=== PATIENT | male | born 1965 | race Caucasian/White ===

== ENCOUNTER → 2023-06-14 07:02 | Outpatient (CLI) | payer SELFPAY ==
[2023-06-14 07:37] LABS: Basophils # 0.1 K/mm3 (0-0.2); Basophils % 0.9 % (0.1-2.0); Eosinophils # 0.2 K/mm3 (0.0-0.4); Eosinophils % 2.3 % (0.1-12.0); Hemoglobin 14.8 g/dL (14.1-18.0); Lymphocytes # 1.8 K/mm3 (0.7-4.5); Lymphocytes % 25.3 % (10-50); Mean Corpuscular HGB Conc 32.2 g/dL (31.8-35.4); Mean Corpuscular Hemoglobin 27.7 pg (27.0-31.2); Mean Corpuscular Volume 86.1 fl (80-94); Mean Platelet Volume 8.6 fl (7.4-10.4); Monocytes # 0.5 K/mm3 (0.1-1.0); Monocytes % 7.2 % (1.7-9.3); Neutrophils # 4.6 K/mm3 (1.8-7.8); Neutrophils % 64.2 % (37.0-80.0); Platelet Count 252 K/mm3 (142-424); Red Blood Count 5.35 M/mm3 (4.60-6.20); Red Cell Distribution Width 13.4 % (11.5-17.5); White Blood Count 7.1 K/mm3 (4.8-10.8)
[2023-06-14 10:29] LABS: Chloride 105 mmol/L (98-107); Potassium 4.6 mmoL/L (3.5-5.1); Sodium 137 mmol/L (136-145)
[2023-06-14 10:31] LABS: Blood Urea Nitrogen 22 mg/dl (9-20); Estimated Glomerular Filt Rate 69 ml/min (>60); GFR (African American) 83 ML/MIN (>60)
[2023-06-14 10:32] LABS: Alanine Aminotransferase 28 U/L (12-78); Albumin Level 3.8 g/dl (3.5-5.0); Alkaline Phosphatase 79 U/L (38-126); Anion Gap 9.6 mEq/L (5-15); Aspartate Amino Transferase 29 U/L (17-59); Bilirubin,Direct 0.3 mg/dl (0.0-0.4); Bilirubin,Total 0.3 mg/dl (0.2-1.3); Bilirubin,Unconjugated 0.1 mg/dL (0.0-1.1); Carbon Dioxide 27 mmol/L (22.0-30.0); Cholesterol 168 mg/dl (140-200); Glucose 92 mg/dl (74-100); HDL Cholesterol 29 mg/dl (40-60); Total Protein,Serum 6.2 g/dl (6.3-8.2); Triglycerides 114 mg/dl (30-150); VLDL Cholesterol 23 mg/dL (0-40)
[2023-06-14 10:40] LABS: Chol/HDL Ratio 5.8 (1-3.5)
[2023-06-14 10:43] LABS: Direct LDL Cholesterol 101.91 mg/dL (100-129)
[2023-06-14 11:59] LABS: Triiodothryronine (T3) Uptake 35 % (23.5-40.5)
[2023-06-14 12:00] LABS: Free Thyroxine Index 2.4 ug/dL (5.93-13.13); T4 (Thyroxine) 6.8 ug/dl (5.53-11.0)
[2023-06-14 12:13] LABS: Thyroid Stimulating Hormone 2.47 uIU/mL (0.465-4.68)
== END ==
PROVIDERS: Visit Provider Internal Medicine
DX: R00.2 Palpitations (principal); R00.0 Tachycardia, unspecified; R53.83 Other fatigue; I10 Essential (primary) hypertension; I11.9 Hypertensive heart disease without heart failure; I63.9 Cerebral infarction, unspecified; E11.9 Type 2 diabetes mellitus without complications
CPT/HCPCS: 36415; 80048; 80061; 80076; 82533; 84436; 84443; 84479; 85025

== ENCOUNTER → 2023-06-16 06:25 | Outpatient (CLI) | payer SELFPAY ==
--- NOTE | 2023-06-16 06:29 | NM_ITS ---
APPROVED REPORT Exam: Nuclear Stress Test Indication: HTN, PALPITATIONS, FORMER SMOKER, ABN EKG Patient Location: Outpatient Stress Tech: Helga Nguyen PR Tech:JIMMY Henry RT (R)(N)(M) Ht: 6 ft 1 in Wt: 193 lbs HR: 64 bpm BP: 142/77 mmHg BSA: 2.12 m2 Rhythm: NSR TID: 1.15 BMI: 25.4 History: HTN, PALPITATIONS, FORMER SMOKER, ABN EKG Procedure: Patient exercised on Galo protocol 10:20 minutes and sec, resting heart rate 64 bpm, resting blood pressure 142/77 mmHg, with exercise maximum heart rate achived was 156 bpm which is 96 % of the maximum predicted heart rate and blood pressure was 195/82 mmHg. Test was stopped due to FATIGUE. Patient denied any complaint of chest pain. Patient has Average exercise capacity, achieved 12.8 METs of workload on treadmill, the blood pressure response to exercise was Normal. Cardiac Stress and Resting SPECT Images: Cardiac Stress and Resting SPECT images were obtained using technetium 99m Myoview 31.8 mCi stress and 10.50 mCi at rest. Resting and stress imaging in supine and prone positions demonstrate no evidence of fixed or reversible perfusion defects. Gated imaging demonstrates normal global and regional LV systolic function. LVEF is calculated at 57%. Conclusion: No evidence of fixed or reversible perfusion defects. Gated imaging demonstrates normal global and regional LV systolic function. LVEF is calculated at 57%. Electronically signed by : Beatriz Gonsalves MD 06/19/2023 23:23:20
--- NOTE | 2023-06-16 07:03 | CA_ITS ---
APPROVED REPORT EXAM: Comprehensive 2D, Doppler, and color-flow Echocardiogram [employer] Operations Farm Manager: Socorro Rodriguez CRT Ht: 6 ft 0 in Wt: 200lbs BSA: 2.13 BP: 140/76 mmHg Indications: Abnormal ECG, Palpitations, Fatigue, Hypertension/HDD 2D Dimensions LVOT 1.98 cm (M/F) 1.5-2.5 LA Volume 30.80 mL LA Volume Index 14.10 mL/m2 (M/F) 16-34 M-Mode Dimensions RVDd 2.96 cm (0.9-2.6) LA Diam 3.57 cm (1.9-4.0) LVDd 4.71 cm (3.5-5.7) Ao Diam 3.41 cm (2.0-3.7) LVDs 3.07 cm (3.5-5.7) IVSd 1.18 cm (0.6-1.1) PWd 0.93 cm (0.6-1.1) EF (Teich) 64.00% FS 34.80% EDV (Teich) 102.90 mL TAPSE 2.29 (<1.7) ESV (Teich) 37.00 mL LV Diastology E Decel Time 223.00 (160-240 msec) E/A Ratio 1.16 MED E' 9.80 (< 7 cm/sec) MED A' 13.20 cm/s E'/MED E' Ratio 8.77 (>14) LAT E' 12.80 (<10 cm/sec) LAT A' 8.40 cm/s E/LAT E' Ratio 6.71 (>14) Aortic Valve AO Peak GR. 5.50 mmHg Mitral Valve MV A Velocity 74.00 (40-130 cm/s) E/A Ratio 1.16 MV Decel. Time 223.00 (160-240 ms) Pulmonary Valve PV Peak Velocity 162.00 (50-150 cm/s) Tricuspid Valve TR P. Velocity 250.00 cm/s RAP Estimate 10.00 mmHg RVSP 35.00 mmHg Left Ventricle The left ventricle is normal size. The left ventricular systolic function is normal. The left ventricular ejection fraction is within the normal range. There is normal left ventricular wall thickness. There is normal LV segmental wall motion. The left ventricular diastolic function is normal. LVEF = 55% Right Ventricle The right ventricle is normal size. The right ventricular systolic function is normal. Atria The left atrium size is normal. The right atrium size is normal. There is no Doppler evidence of interatrial shunt. Aortic Valve The aortic valve opens well. There is no aortic valvular stenosis. No aortic regurgitation is present. Mitral Valve The mitral valve is normal in structure. No evidence of mitral valve stenosis. Trace mitral regurgitation. Tricuspid Valve The tricuspid valve leaflets are thin and pliable. Trace tricuspid regurgitation. RVSP is 25-30 mmHg. Pulmonic Valve The pulmonary valve is normal in structure. Mild pulmonic regurgitation. Great Vessels The aortic root is normal in size. The ascending aorta is normal in size. IVC is normal in size and collapses >50% with inspiration. Pericardium There is no pericardial effusion. Other Information Study Quality: Fair Conclusion Normal biventricular systolic function. No significant valvular stenosis or regurgitation. Electronically signed by : Beatriz Gonsalves MD 06/16/2023 11:05:20
--- NOTE | 2023-06-16 07:03 | CA_ITS ---
FINAL REPORT TECHNIQUE: Color Doppler, duplex Doppler and wade scale sonography of the bilateral neck arterial vasculature was performed. Velocities were measured in the carotid arteries. Stenosis evaluation based on the validated velocity criteria. CLINICAL HISTORY: numbness in face, ex-smoke, palpitations FINDINGS: The peak systolic velocity of the right common carotid artery is 76 cm/s. The peak systolic velocity of the right internal carotid artery is 100 cm/s and end diastolic velocity 37 cm/s. The ICA/CCA ratio is 2.0. A small amount of plaque is present. The right external carotid artery is patent. The right vertebral artery is patent with antegrade flow. The peak systolic velocity of the left common carotid artery is 82 cm/s. The peak systolic velocity of the left internal carotid artery is 129 cm/s and end diastolic velocity 44 cm/s. The ICA/CCA ratio is 2.3. A small amount of plaque is present. The left external carotid artery is patent.The left vertebral artery is patent with antegrade flow. IMPRESSION: Less than 50% bilateral carotid stenoses. Bilateral patent vertebral arteries with antegrade flow. If indicated, CTA or MRA could further evaluate. Reviewed, Interpreted and Dictated by Héctor Elmore III, MD Transcribed by Surekha Santana Authenticated and . [facility]
--- NOTE | 2023-06-16 09:22 | CA_ITS ---
APPROVED REPORT Exam: Exercise Treadmill Technologist: Helga Nguyen Ht: 6 ft 0 in Wt: 201 lbs BSA: 2.14 m2 HR: 63 bpm BP: 142/77 mmHg Rhythm: NSR Indications: Abnormal ekg, Palpitations, Face numbness Medical History Medications: Lisinopril,,,,, MeLOXICAM,,,,, Methocarbamol,,,,, Stress Test Details Test: Galo HR Resting HR: 64 bpm Max Heart Rate (APMHR): 162 bpm Max HR Achieved: 156 bpm Target HR (85% APMHR): 138 bpm % of APMHR: 96 Recovery HR: 81 bpm HR response to stress: Normal HR response to stress BP Resting BP: 142.0/77.0 mmHg Max BP: 195.0/82.0 mmHg Recovery BP: 126.0/68.0 mmHg BP response to stress: Normal blood pressure response to stress. ECG Resting ECG: Normal sinus rhythm Stress EC.[address] depression Arrhythmia: PACs, PVCs, ventricular couplet Recovery ECG: Return to baseline within 1 minute of recovery. Recovery Arrhythmia: PACs Clinical Reason for Termination: Dyspnea Exercise duration: 10:20 min Highest Stage Achieved: Exercise capacity: 12.8 METs Overall Exercise Capacity for Age: Average Stress ECG Conclusion The patient was able to exercise for a total of 10 minutes, 20 seconds. He achieved a total of 12.8 METS. He has average exercise capacity compared to age and sex matched peers. He has normal HR and BP response to exercise. Symptoms: No chest pain. Arrhythmias/Ectopy: One ventricular couplet. Occasional to frequent PAC's ST-T Changes: No significant ST changes suggestive of ischemia Conclusion: Average exercise capacity. Normal GXT. PACs, PVCs, ventricular couplets at peak stress. Myoview images reported separately. Test Summary REST . . . . . . . Sitting REST . . . . . . . Standing REST 03:35 0.0 0.0 64 . 142/ 77 . . Stage 1 01:00 10.0 1.7 92 . . . . Stage 1 02:00 10.0 1.7 98 . . . . Stage 1 03:00 10.0 1.7 99 . 172/ 68 . . Stage 2 01:00 12.0 2.5 106 . . . . Stage 2 02:00 12.0 2.5 109 . . . . Stage 2 03:00 12.0 2.5 112 . 184/ 70 . . Stage 3 01:00 14.0 3.4 121 . . . . Stage 3 02:00 14.0 3.4 126 . . . . Stage 3 03:00 14.0 3.4 130 . 192/ 70 . . Stage 4 . . . . . . . Myoview Injected Stage 4 01:00 16.0 4.2 146 . . . . Stage 4 01:20 16.0 4.2 154 . . . Stop exercise at 10:20 RECOVERY 01:00 0.0 0.0 124 . . . . RECOVERY 02:00 0.0 0.0 96 . 195/ 82 . . RECOVERY 03:00 0.0 0.0 84 . 195/ 82 . . RECOVERY 04:00 0.0 0.0 78 . 166/ 67 . . RECOVERY 05:00 0.0 0.0 81 . 166/ 67 . . RECOVERY 06:00 0.0 0.0 80 . 126/ 68 . . RECOVERY 06:01 0.0 0.0 80 . 126/ 68 . . Electronically signed by : Beatriz Gonsalves MD 06/16/2023 09:51:42
== END ==
PROVIDERS: Visit Provider Internal Medicine
DX: R42 Dizziness and giddiness (principal); R00.2 Palpitations; R00.0 Tachycardia, unspecified; R94.31 Abnormal electrocardiogram [ECG] [EKG]; I10 Essential (primary) hypertension; R53.83 Other fatigue; R20.0 Anesthesia of skin
CPT/HCPCS: 78452; 93017; 93306; 93880; A9502

== ENCOUNTER 2024-02-29 14:27 | Outpatient (CLI) | payer BC, SELFPAY ==
[2024-02-29 15:21] LABS: Basophils # 0.1 K/mm3 (0-0.2); Basophils % 1.2 % (0.1-2.0); Eosinophils # 0.1 K/mm3 (0.0-0.4); Eosinophils % 1.9 % (0.1-12.0); Hematocrit 41.7 % (42.0-52.0); Hemoglobin 13.7 g/dL (14.1-18.0); Lymphocytes # 1.5 K/mm3 (0.7-4.5); Lymphocytes % 21.9 % (10-50); Mean Corpuscular HGB Conc 32.9 g/dL (31.8-35.4); Mean Corpuscular Hemoglobin 29.1 pg (27.0-31.2); Mean Corpuscular Volume 88.5 fl (80-94); Mean Platelet Volume 9.5 fl (7.4-10.4); Monocytes # 0.5 K/mm3 (0.1-1.0); Monocytes % 7.5 % (1.7-9.3); Neutrophils # 4.5 K/mm3 (1.8-7.8); Neutrophils % 67.6 % (37.0-80.0); Platelet Count 203 K/mm3 (142-424); Red Blood Count 4.71 M/mm3 (4.60-6.20); Red Cell Distribution Width 14.2 % (11.5-17.5); White Blood Count 6.7 K/mm3 (4.8-10.8)
[2024-02-29 15:42] LABS: Alanine Aminotransferase 25 U/L (12-78); Albumin Level 4.2 g/dl (3.5-5.0); Alkaline Phosphatase 65 U/L (38-126); Anion Gap 13.4 mEq/L (5-15); Aspartate Amino Transferase 33 U/L (17-59); Bilirubin,Indirect 0.7 mg/dL (0.0-0.9); Bilirubin,Total 0.7 mg/dl (0.2-1.3); Bilirubin,Unconjugated 0.7 mg/dL (0.0-1.1); Blood Urea Nitrogen 24 mg/dl (9-20); Calcium 9.7 mg/dl (8.4-10.2); Carbon Dioxide 27 mmol/L (22.0-30.0); Chloride 105 mmol/L (98-107); Chol/HDL Ratio 5.8 (1-3.5); Cholesterol 210 mg/dl (140-200); Estimated Glomerular Filt Rate 57 ml/min (>60); GFR (African American) 68 ML/MIN (>60); Glucose 93 mg/dl (74-100); HDL Cholesterol 36 mg/dl (40-60); Magnesium 2.2 mg/dl (1.6-2.3); Potassium 4.4 mmoL/L (3.5-5.1); Sodium 141 mmol/L (136-145); Total Protein,Serum 6.6 g/dl (6.3-8.2); Triglycerides 107 mg/dl (30-150); VLDL Cholesterol 21 mg/dL (0-40)
[2024-02-29 15:53] LABS: Direct LDL Cholesterol 125.86 mg/dL (100-129)
[2024-02-29 16:00] LABS: Free T4 (Free Thyroxine) 0.88 ng/dl (0.78-2.19)
[2024-02-29 16:12] LABS: Thyroid Stimulating Hormone 1.43 uIU/mL (0.465-4.68)
== END 2024-02-29 23:59 | disposition home or self-care (01) ==
LOC: LAB 14:28
PROVIDERS: Visit Provider Internal Medicine
DX: R00.2 Palpitations (principal); R53.83 Other fatigue; I10 Essential (primary) hypertension; R94.31 Abnormal electrocardiogram [ECG] [EKG]
CPT/HCPCS: 36415; 80048; 80061; 80076; 83735; 84439; 84443; 85025

== ENCOUNTER 2024-03-31 10:21 | Outpatient (CLI) | payer BC, SELFPAY ==
[2024-03-31 10:35] LABS: Basophils # 0.1 K/mm3 (0-0.2); Basophils % 1.5 % (0.1-2.0); Eosinophils # 0.1 K/mm3 (0.0-0.4); Eosinophils % 2.3 % (0.1-12.0); Hematocrit 42.3 % (42.0-52.0); Hemoglobin 14.2 g/dL (14.1-18.0); Lymphocytes # 1.2 K/mm3 (0.7-4.5); Mean Corpuscular HGB Conc 33.6 g/dL (31.8-35.4); Mean Corpuscular Hemoglobin 29.9 pg (27.0-31.2); Mean Corpuscular Volume 89.1 fl (80-94); Mean Platelet Volume 9.2 fl (7.4-10.4); Monocytes # 0.4 K/mm3 (0.1-1.0); Monocytes % 7.6 % (1.7-9.3); Neutrophils # 3.9 K/mm3 (1.8-7.8); Neutrophils % 67.6 % (37.0-80.0); Platelet Count 207 K/mm3 (142-424); Red Blood Count 4.74 M/mm3 (4.60-6.20); Red Cell Distribution Width 14.1 % (11.5-17.5); White Blood Count 5.8 K/mm3 (4.8-10.8)
[2024-03-31 11:00] LABS: Chloride 107 mmol/L (98-107); Sodium 140 mmol/L (136-145)
[2024-03-31 11:01] LABS: Potassium 4.4 mmoL/L (3.5-5.1)
[2024-03-31 11:03] LABS: Blood Urea Nitrogen 21 mg/dl (9-20); Estimated Glomerular Filt Rate 69 ml/min (>60); GFR (African American) 83 ML/MIN (>60)
[2024-03-31 11:04] LABS: Anion Gap 8.4 mEq/L (5-15); Calcium 9.6 mg/dl (8.4-10.2); Carbon Dioxide 29 mmol/L (22.0-30.0); Glucose 103 mg/dl (74-100)
== END 2024-03-31 23:59 | disposition home or self-care (01) ==
LOC: LAB 10:22
PROVIDERS: Visit Provider Nurse Practitioner Family
DX: D64.9 Anemia, unspecified (principal); R42 Dizziness and giddiness; R20.0 Anesthesia of skin; R94.31 Abnormal electrocardiogram [ECG] [EKG]; I10 Essential (primary) hypertension; R00.0 Tachycardia, unspecified; R53.83 Other fatigue; R00.2 Palpitations
CPT/HCPCS: 36415; 80048; 85025

== ENCOUNTER 2024-05-30 20:07 | Emergency (ER) | payer SELFPAY ==
[2024-05-30 20:09] VITALS: BMI 33.9
[2024-05-30 20:15] VITALS: BP 150/74; PULSE 75; RESP 13; TEMP 36.6; O2SAT 97
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
[2024-05-30] MEDS: LACTATED RINGERS 1000ML 1,000 ML 999 ML IV (20:22)
[2024-05-30] MEDS: ACETAMINOPHEN 1,000MG/100ML VIAL 1000 MG IV (20:22)
[2024-05-30] MEDS: LIDOCAINE 5% TRANSDERMAL PATCH 1 EACH TP (20:24)
[2024-05-30] MEDS: TET/DIPHTH/PERT-ADULT 0.5ML SYRINGE 0.5 ML IM (20:25)
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
[2024-05-30] MEDS: IOPAMIDOL-370 (76%);100ML BOTTLE 160 ML IV (20:48)
[2024-05-30] MEDS: 0.9 % SODIUM CHLORIDE 50 ML VIAL IV (20:48)
[2024-05-30] MEDS: SODIUM CHLORIDE 0.9% 10ML SYR (RAD ONLY) 10 ML IV (20:48)
--- NOTE | 2024-05-30 20:49 | PC.NURSE ---
Pt's and children are bedside. Dr. Nieves is in the room with family at this time.
[2024-05-30] MEDS: METHOCARBAMOL 500MG TABLET 500 MG PO (20:54)
[2024-05-30 20:57] VITALS: BP 138/71; PULSE 79; RESP 15; O2SAT 98
[2024-05-30 21:00] VITALS: BP 134/77; PULSE 74; RESP 15; O2SAT 98
--- NOTE | 2024-05-30 21:07 | PC.NURSE ---
at bedside at this time.
--- NOTE | 2024-05-30 21:39 | PC.NURSE ---
at bedside repairing laceration at this time. Two visitors at bedside at this time.
[2024-05-30] MEDS: BACITRACIN ZINC OINT 30GM TUBE TP (21:48)
--- NOTE | 2024-05-30 21:52 | PC.NURSE ---
Charge nurse is updating family in lobby of POC at this time.
[2024-05-30 22:00] VITALS: PULSE 79; RESP 12; O2SAT 97
[2024-05-30 22:15] VITALS: BP 134/79; PULSE 73; RESP 16; O2SAT 95
[2024-05-30 22:18] LABS: Basophils % 0.2 % (0.1-2.0); Eosinophils # 0.1 K/mm3 (0.0-0.4); Eosinophils % 0.7 % (0.1-12.0); Hematocrit 44.7 % (42.0-52.0); Hemoglobin 14.1 g/dL (14.1-18.0); Lymphocytes # 1.1 K/mm3 (0.7-4.5); Lymphocytes % 6.2 % (10-50); Mean Corpuscular HGB Conc 31.4 g/dL (31.8-35.4); Mean Corpuscular Hemoglobin 29.2 pg (27.0-31.2); Mean Corpuscular Volume 92.7 fl (80-94); Mean Platelet Volume 8.1 fl (7.4-10.4); Monocytes # 0.6 K/mm3 (0.1-1.0); Monocytes % 3.7 % (1.7-9.3); Neutrophils # 15.4 K/mm3 (1.8-7.8); Neutrophils % 89.1 % (37.0-80.0); Platelet Count 206 K/mm3 (142-424); Red Blood Count 4.82 M/mm3 (4.60-6.20); White Blood Count 17.2 K/mm3 (4.8-10.8)
[2024-05-30 22:21] LABS: MANUAL DIFFERENTIAL MANUAL DIFFERENTIAL (MANUAL DIFF)
[2024-05-30] MEDS: LIDOCAINE 1% W/EPI 1:100,000 20ML VIAL 20 ML IJ (22:21)
[2024-05-30 22:22] LABS: Lactate Venous 1.5 mmol/L (0.4-2.0); VBG Base Excess -2.1 mmol/L (-2.4-2.3); VBG HCO3 23.8 mmol/L (23-30); VBG Oxygen Saturation 83.2 % (50-70); VBG PCO2 46.3 mmol/L (35-51); VBG PH 7.33 mmol/L (7.31-7.41); VBG PO2 49.5 mmol/L (28-40); VBG Total CO2 25.2 mmol/L (23-27)
[2024-05-30 22:30] LABS: Alanine Aminotransferase 27 U/L (12-78); Albumin Level 3.7 g/dl (3.5-5.0); Albumin/Globulin Ratio 1.4 (1.1-1.8); Alkaline Phosphatase 83 U/L (38-126); Anion Gap 6.6 mEq/L (5-15); Aspartate Amino Transferase 44 U/L (17-59); Bilirubin,Total 0.5 mg/dl (0.2-1.3); Blood Urea Nitrogen 29 mg/dl (9-20); Calcium 9.1 mg/dl (8.4-10.2); Carbon Dioxide 27 mmol/L (22.0-30.0); Chloride 106 mmol/L (98-107); Creatinine Clearance Estimated 91 mL/min (50-200); Estimated Glomerular Filt Rate 52 ml/min (>60); Ethyl Alcohol < 10 mg/dl (0-10); GFR (African American) 63 ML/MIN (>60); Globulin 2.6 g/dL (1.3-3.2); Glucose 113 mg/dl (74-100); Lipase 111 U/L (23-300); Potassium 4.6 mmoL/L (3.5-5.1); Sodium 135 mmol/L (136-145); Total Protein,Serum 6.3 g/dl (6.3-8.2)
[2024-05-30 22:32] LABS: Prothrombin Time 12.2 seconds (10.1-12.5)
[2024-05-30 22:33] LABS: Activated Partial Thrombo Time 24.9 seconds (22.8-30.6)
[2024-05-30 22:42] LABS: Troponin I < 0.01 ng/ml (0.00-0.034)
[2024-05-30 22:47] LABS: Lymphocytes % 7 % (10-50); Monocytes % 2 % (2-9); Neutrophils % 91 % (42-76); Platelet Estimate Normal; RBC Morphology Normal; Total Cells Counted 100
--- NOTE | 2024-05-30 22:51 | PC.NURSE ---
called EMS for a tranfer to .
[2024-05-30 22:54] LABS: Microscopic, Urine URINE MICROSCOPIC (MICROSCOPIC)
[2024-05-30 22:56] LABS: Appearance,Urine CLEAR (Clear); Bilirubin,Urine Negative (Negative); Blood, Urine Negative (Negative); Color,Urine YELLOW (Yellow); Glucose,Urine (UA) Negative (Negative); Ketones,Urine Negative (Negative); Leukocyte Esterase,Urine Negative (Negative); Nitrate,Urine Negative (Negative); Protein,Urine Negative (Negative); Specific Gravity, Urine 1.015 (1.005-1.030); Urobilinogen,Urine 0.2 EU/dl (0.2)
[2024-05-30 23:07] LABS: Barbiturates Screen,Urine Negative ng/ml (<200); Benzodiazepines Screen,Urine Negative ng/ml (<200)
[2024-05-30 23:08] LABS: Amphetamine/Metha Screen,Urine Negative ng/ml (<1000)
[2024-05-30 23:09] LABS: Cannabinoid Screen,Urine Negative ng/ml (<50); Cocaine Screen,Urine Negative ng/ml (<300)
[2024-05-30 23:10] LABS: Methadone Screen,Urine Negative ng/ml (<300)
[2024-05-30 23:11] LABS: Opiate Screen,Urine Negative ng/ml (<300); Phencyclidine Screen,Urine Negative ng/ml (<25)
[2024-05-30 23:14] LABS: RBC,Urine Occasional #/hpf (0-3); Squamous Epithelial Cell,Urine Occasional #/hpf (0-5); WBC,Urine Occasional #/hpf (0-3)
[2024-05-30 23:16] LABS: Mucus,Urine Trace /lpf
[2024-05-30 23:17] LABS: Bacteria,Urine 1+ /lpf
[2024-05-30 23:26] VITALS: BP 133/74; PULSE 77; RESP 18; TEMP 36.6; O2SAT 97
== END 2024-05-30 23:26 | disposition short-term general hospital (02) ==
PROVIDERS: Emergency Provider Emergency Medicine
DX: S22.41XA Multiple fractures of ribs, right side, initial encounter for closed fracture (principal); S01.01XA Laceration without foreign body of scalp, initial encounter; S27.321A Contusion of lung, unilateral, initial encounter; J84.10 Pulmonary fibrosis, unspecified; V27.49XA Other motorcycle driver injured in collision with fixed or stationary object in traffic accident, initial encounter; Z23 Encounter for immunization
CPT/HCPCS: 12034; 70450; 70496; 70498; 71045; 71275; 72125; 72128; 72131; 72170; 72192; 73130; 73562; 74174; 80053; 80307; 80320; 81001; 82803; 83690; 84484; 85007; 85025; 85027; 85610; 85730; 90471; 90715; 96361; 96374; 96375; 99285; G0480; J0131; J7120; Q9967

== ENCOUNTER 2025-07-04 14:17 | Emergency (ER) | payer BC, SELFPAY ==
--- NOTE | 2025-07-04 14:21 | ED_ITS ---
<Statement entered by Clive Mitchell MD - 07/04/25 21:52> I was consulted by the LA, and we discussed the complexity of the problems being addressed. I approved the treatment and management plan for this patient's care in the emergency department, thus performing a substantive portion of the medical decision making. Clive Mitchell MD, MINO, FACEP <Statement entered by Hank Fatima MD - 07/04/25 17:47> I was consulted by the LA, and we discussed the complexity of the problems being addressed. I approve the treatment and management plan for this patient's care in the emergency department, thus performing a substantive portion of the medical decision making. Hank Fatima MD Discharge Plan Disposition Patient Disposition: Home, Self-Care Condition: Good Prescriptions Prescriptions: No Action meloxicam 15 mg tablet 15 mg PO DAILY methocarbamol 750 mg tablet 750 mg PO QID lisinopril 10 mg tablet 10 mg PO DAILY Qty: 90 3RF Referrals Follow up/Referrals: Provider,MD Se[facility]ity [Primary Care Provider, Medical] - See instructions Abram Andrade MD [Physician, Pulmonology] - See instructions Activity Restrictions/Add. Instructions Additional Instructions/Restrictions: Please return to the emergency department with any worsening signs or symptoms. 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 Please continue to take all your at home medicine as prescribed. Please follow-up with your PCP in the upcoming days/weeks. Clinical Impressions Clinical Impression: Hilar lymphadenopathy, DONALDSON (dyspnea on exertion), Lung granuloma Instructions Patient Instructions: DI for Shortness of Breath, DI for Lymphadenopathy, DI for Pulmonary Nodule Print Language Print Language: Korean Discharge ED Provider: Clive Mitchell [facility] <REINA Vogel - Last Filed: 07/04/25 16:41> General Chief Complaint: Chest Pain Stated Complaint: SOA, CP Time Seen by Provider: 07/04/25 14:21 Mode of Arrival: Ambulatory Source of Information: Patient and Medical Record Limitations: No Limitations History of Present Illness HPI narrative: 59-year-old male presents to the emergency department with a 10-day history of dyspnea and worsening dyspnea on exertion, patient states that when he exerts himself even minimally he has shortness of breath, did experience some chest tightness , yesterday that started around 1:32 PM, relieved with rest. It was substernal nonradiating, currently his chest pain and shortness of breath free, no orthopnea, no fever chills cough congestion, no recent sick exposures or illness, denies any nausea vomiting abdominal pain constipation diarrhea no urinary type symptomatology, patient is a former smoker, denies any alcohol or other drug use, other past medical history is consistent with hypertension, otherwise unremarkable past medical history no surgical history. Initial triage vitals are unremarkable. Of note patient has had previous cardiology workup/consultation regarding an abnormal EKG and palpitations , patient states that this symptomatology over the last several days has been different. Please note that above description of symptoms, in this electronic medical record under categorization of recalled from ER triage doctor by RN are reflective of an initial nursing assessment, however, is not reflective of my full history and physical exam that was personally taken and clarified. Consequentially, this preceding description of symptoms, which may include the patient's categorized chief complaint in the EMR, do not reflect my personal clinical impression, and the ultimate description of history of present illness and patient stated complaints should be deferred to this section of the note. Unless stated otherwise or congruent with this section of the note, additional signs, symptoms, or incongruence should be interpreted as inaccurate with my clinical impression. MD complaint: other Duration: intermittent Activity at onset: during exertion Pain location: substernal Quality: tightness Related Data Home Medications ?Medication ?Instructions ?Recorded ?Confirmed meloxicam 15 mg tablet 15 mg PO DAILY 06/08/2310/07 methocarbamol 750 mg tablet 750 mg PO QID 06/08/2310/07 Previous Rx's ?Medication ?Instructions ?Recorded lisinopril 10 mg tablet 10 mg PO DAILY #90 tabs 10/07 Allergies Allergy/AdvReac Type Severity Reaction Status Date / Time No Known Allergies Allergy Verified 03/13/25 13:22 [facility] <REINA Vogel - Last Filed: 07/04/25 16:41> [facility] Disclaimer: The information contained in this section may have been updated after the patient was seen, as this information can be updated by other users. Family History (Updated 03/13/25 @ 13:24 by Elicia Mitchell MA) Mother Cancer Social History Smoking Status: Never smoker alcohol intake: never substance use type: denies use current occupational status: employed Travel in the last 8 weeks?: Inside the [place] Have you lived/traveled outside US in past 30 days?: No Contact w/someone who lives/traveled outside US past 30 days?: No Exposure to someone with infectious disease in past 14 days?: No Do you have a fever (greater than 100.4 F or 38 C)?: No Have you tested positive for COVID-19?: No Exposed to someone with COVID-19 in past 14 days?: No Do you have a sore throat?: No Do you have a cough?: No Do you have any weakness?: No Do you have any diarrhea?: No Are you experiencing any unusual bleeding?: No Do you have any muscle aches/pain?: No Do you have any abdominal pain?: No Are you experiencing loss of taste or smell?: No <REINA Vogel - Last Filed: 07/04/25 16:41> ROS Obtained: Yes All systems reviewed & no additional complaints except as documented Physical Exam <REINA Vogel - Last Filed: 07/04/25 16:41> General General appearance: alert and in no apparent distress Head Head exam: atraumatic and normocephalic Eye Eye exam: Present normal appearance, PERRL and EOMI Neck Neck exam: Present full ROM; Absent meningismus Chest Chest inspection: Present normal inspection Respiratory Respiratory exam: Absent respiratory distress, wheezes, stridor, accessory muscle use or prolonged expiratory phase Cardiovascular Cardiovascular exam: Present normal rhythm and other (Pulses equal and symmetric in bilateral upper and lower extremities) Abdominal Exam Abdominal exam: Absent distention, tenderness, guarding or rebound Extremities Exam Extremities exam: Absent edema Neurological Exam Neurological exam: Present alert Psychiatric Psychiatric exam: Present normal affect Skin Skin exam: Present warm and dry HEART Score <REINA Vogel - Last Filed: 07/04/25 16:41> HEART Score HEART Score assessment performed?: Yes HEART Score: 1 Critical Care <REINA Vogel - Last Filed: 07/04/25 16:41> Critical Care Time Critical Care Time: No Medical Decision Making <REINA Vogel - Last Filed: 07/04/25 16:41> Medical Records Medical records reviewed: Yes I reviewed the patient's medical records. Tip Inquiry Pt receiving controlled substance: No Tip was queried for this patient: No Vital Signs Vital Signs: 07/04/25 14:28 07/04/25 14:30 07/04/25 15:00 Temperature 97.9 F Temperature Source Temporal Artery Scan Pulse Rate 67 65 Pulse Rate [Right] 73 Respiratory Rate 18 14 18 Blood Pressure 132/66 122/68 Blood Pressure [Right Arm] 159/83 H Blood Pressure Mean Blood Pressure Mean [Right Arm] 108 Blood Pressure Source Blood Pressure Source [Right Arm] Automatic Cuff Blood Pressure Position Blood Pressure Position [Right Arm] Sitting 02 Sat by Pulse Oximetry 97 97 94 L Oxygen Delivery Method Room Air Room Air 07/04/25 15:30 07/04/25 16:00 07/04/25 16:38 Temperature 97.8 F Temperature Source Oral Pulse Rate 59 L 56 L 57 L Pulse Rate [Right] Respiratory Rate 16 Blood Pressure 135/66 128/74 138/80 Blood Pressure [Right Arm] Blood Pressure Mean 89 82 Blood Pressure Mean [Right Arm] Blood Pressure Source Automatic Cuff Blood Pressure Source [Right Arm] Blood Pressure Position Sitting Blood Pressure Position [Right Arm] 02 Sat by Pulse Oximetry 95 95 Oxygen Delivery Method Room Air Lab Data Lab results reviewed: Yes I reviewed the patient's lab results. Labs: Lab Results 07/04/25 14:28: WBC 7.0, RBC 4.87, Hgb 14.0 L, Hct 41.2 L, MCV 84.6, MCH 28.7, MCHC 34.0, RDW 12.7, Plt Count 206, MPV 10.6 H, Neut % (Auto) 67.0, Lymph % (Auto) 20.8, Heard % (Auto) 9.0, Eos % (Auto) 2.0, Baso % (Auto) 0.9, Neut # (Auto) 4.7, Lymph # (Auto) 1.5, Heard # (Auto) 0.6, Eos # (Auto) 0.1, Baso # (Auto) 0.1, PT 11.1, INR 1.00, D-Dimer 0.57 H, Sodium 139, Potassium 4.1, Chloride 104, Carbon Dioxide 25, Anion Gap 14.1, BUN 25 H, Creatinine 1.20, Estimated Creat Clear 86, Estimated GFR 62, Est GFR ( Amer) 75, Glucose 131 H, Calcium 9.1, Magnesium 1.8, Total Bilirubin 0.8, AST 47, ALT 31, Alkaline Phosphatase 92, Troponin I < 0.01, NT-Pro-B Natriuret Pep 100, Total Protein 6.9, Albumin 4.3, Globulin 2.6, Albumin/Globulin Ratio 1.7, Lipase 97 07/04/25 14:28 07/04/25 14:28 Response Orders (Tests/Meds): ED MEDICATIONS Discontinued Medications Generic Name Dose Route Start Last Admin Trade Name Freq PRN Reason Stop Dose Admin Iopamidol 70 ml 07/04/25 15:23 07/04/25 15:24 Iopamidol-370 (76%);100ml Bottle IV 07/04/25 15:24 70 ml ONCE ONE Administration Sodium Chloride 50 ml 07/04/25 15:23 07/04/25 15:24 0.9 % Sodium Chloride 50 Ml Vial IV 07/04/25 15:24 50 ml ONCE ONE Administration Sodium Chloride 10 ml 07/04/25 15:23 07/04/25 15:24 Sodium Chloride 0.9% 10ml Syr (Rad Only) IV 07/04/25 15:24 10 ml ONCE ONE Administration ORDERS Category Date Time Status CT angio chest PE protocol Stat Cat Scan 07/04/25 15:12 Completed XR chest portable Stat Exams 07/04/25 14:31 Completed Complete Blood Count Auto Diff Stat Lab 07/04/25 14:28 Completed Comprehensive Metabolic Panel Stat Lab 07/04/25 14:28 Completed D-Dimer Stat Lab 07/04/25 14:28 Completed Lipase Stat Lab 07/04/25 14:28 Completed Magnesium Stat Lab 07/04/25 14:28 Completed NT Pro Brain Natriuretic Pep. Stat Lab 07/04/25 14:28 Completed PT INR [Prothrombin Time INR] Stat Lab 07/04/25 14:28 Completed Troponin I Stat Lab 07/04/25 14:28 Completed MDM Narrative Medical Decision Narrative: 59-year-old male presents the emergency department with dyspnea and dyspnea exertion for the last 10 days and chest tightness that occurred yesterday, differential diagnose include but not limited to acute bronchitis, COPD exacerbation, new onset/CHF exacerbation, cardiac arrhythmia, electrolyte disturbance, ACS, PE, pleural effusion, pulmonary edema among others. I discussed this patient's case with the attending physician Dr. Fatima I discussed this patient's case with Dr. Mitchell as well. Will obtain basic laboratory studies, D-dimer lipase magnesium of proBNP PT/INR, troponin, chest x-ray and EKG CBC is unremarkable CMP is notable for mild BUN elevation 25 otherwise unremarkable CMP Coags within normal limits proBNP within normal limit Initial troponin is less than 0.01 D-dimer is minimally elevated at 0.57, with patient's clinical history and elevated D-dimer will obtain CTA chest with without contrast PE protocol. I reviewed the patient's chest x-ray along the corresponding radiologic report, no acute abnormality, no change from prior exam. I reviewed the patient's CTA chest with and without contrast along the corresponding radiologic report, no evidence of pulmonary embolism, no acute lung disease, extensive adenopathy which is stable could be related to sarcoidosis or granulomatous disease as most likely causes. I discussed the results with the patient at the bedside, patient is in agreement with the current discharge plan/treatment plan. 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 Will need to follow-up with pulmonology and cardiology in the coming days/weeks. Patient was given strict ED return precautions. Patient voiced understanding and agreement with current treatment plan/discharge plan. Patient has remained hemodynamically stable throughout his time in the emergency department. SpO2 within normal limits. Also of note, upon discharge patient was asking for some cream , for a burn that he sustained on his right ring finger several days ago, will give patient bacitracin prior to discharge. Patient is given strict return precautions. Patient voiced understanding. <Hank Fatima MD - Last Filed: 07/04/25 14:45> Vital Signs Vital Signs: 07/04/25 14:28 07/04/25 14:30 07/04/25 15:00 Temperature 97.9 F Temperature Source Temporal Artery Scan Pulse Rate 67 65 Pulse Rate [Right] 73 Respiratory Rate 18 14 18 Blood Pressure 132/66 122/68 Blood Pressure [Right Arm] 159/83 H Blood Pressure Mean Blood Pressure Mean [Right Arm] 108 Blood Pressure Source Blood Pressure Source [Right Arm] Automatic Cuff Blood Pressure Position Blood Pressure Position [Right Arm] Sitting 02 Sat by Pulse Oximetry 97 97 94 L Oxygen Delivery Method Room Air Room Air 07/04/25 15:30 07/04/25 16:00 07/04/25 16:38 Temperature 97.8 F Temperature Source Oral Pulse Rate 59 L 56 L 57 L Pulse Rate [Right] Respiratory Rate 16 Blood Pressure 135/66 128/74 138/80 Blood Pressure [Right Arm] Blood Pressure Mean 89 82 Blood Pressure Mean [Right Arm] Blood Pressure Source Automatic Cuff Blood Pressure Source [Right Arm] Blood Pressure Position Sitting Blood Pressure Position [Right Arm] 02 Sat by Pulse Oximetry 95 95 Oxygen Delivery Method Room Air Lab Data Labs: Lab Results 07/04/25 14:28: WBC 7.0, RBC 4.87, Hgb 14.0 L, Hct 41.2 L, MCV 84.6, MCH 28.7, MCHC 34.0, RDW 12.7, Plt Count 206, MPV 10.6 H, Neut % (Auto) 67.0, Lymph % (Auto) 20.8, Heard % (Auto) 9.0, Eos % (Auto) 2.0, Baso % (Auto) 0.9, Neut # (Auto) 4.7, Lymph # (Auto) 1.5, Heard # (Auto) 0.6, Eos # (Auto) 0.1, Baso # (Auto) 0.1, PT 11.1, INR 1.00, D-Dimer 0.57 H, Sodium 139, Potassium 4.1, Chloride 104, Carbon Dioxide 25, Anion Gap 14.1, BUN 25 H, Creatinine 1.20, Estimated Creat Clear 86, Estimated GFR 62, Est GFR ( Amer) 75, Glucose 131 H, Calcium 9.1, Magnesium 1.8, Total Bilirubin 0.8, AST 47, ALT 31, Alkaline Phosphatase 92, Troponin I < 0.01, NT-Pro-B Natriuret Pep 100, Total Protein 6.9, Albumin 4.3, Globulin 2.6, Albumin/Globulin Ratio 1.7, Lipase 97 Response Orders (Tests/Meds): ED MEDICATIONS Discontinued Medications Generic Name Dose Route Start Last Admin Trade Name Freq PRN Reason Stop Dose Admin Iopamidol 70 ml 07/04/25 15:23 07/04/25 15:24 Iopamidol-370 (76%);100ml Bottle IV 07/04/25 15:24 70 ml ONCE ONE Administration Sodium Chloride 50 ml 07/04/25 15:23 07/04/25 15:24 0.9 % Sodium Chloride 50 Ml Vial IV 07/04/25 15:24 50 ml ONCE ONE Administration Sodium Chloride 10 ml 07/04/25 15:23 07/04/25 15:24 Sodium Chloride 0.9% 10ml Syr (Rad Only) IV 07/04/25 15:24 10 ml ONCE ONE Administration ORDERS Category Date Time Status CT angio chest PE protocol Stat Cat Scan 07/04/25 15:12 Completed XR chest portable Stat Exams 07/04/25 14:31 Completed Complete Blood Count Auto Diff Stat Lab 07/04/25 14:28 Completed Comprehensive Metabolic Panel Stat Lab 07/04/25 14:28 Completed D-Dimer Stat Lab 07/04/25 14:28 Completed Lipase Stat Lab 07/04/25 14:28 Completed Magnesium Stat Lab 07/04/25 14:28 Completed NT Pro Brain Natriuretic Pep. Stat Lab 07/04/25 14:28 Completed PT INR [Prothrombin Time INR] Stat Lab 07/04/25 14:28 Completed Troponin I Stat Lab 07/04/25 14:28 Completed ECG Data Tracing #1: Attestation: I reviewed this ECG and interpreted as documented below: ECG Narrative: NSR. No ST elevation or depression. QTC normal
--- NOTE | 2025-07-04 14:26 | ECG_ITS ---
APPROVED REPORT Exam: Resting ECG HR:65 bpm ECG Measurements Heart Rate 65 AXES CA 147 P 29 QRSd 74 QRS 44 QT 354 T 50 QTc 366 Conclusion SINUS RHYTHM NORMAL ECG UNCONFIRMED REPORT Electronically signed by : ANGELICA ORNELAS, 07/05/2025 06:44:00
[2025-07-04 14:28] VITALS: BP 159/83; PULSE 73; RESP 18; TEMP 36.6; O2SAT 97; BMI 27.8
[2025-07-04 14:30] VITALS: BP 132/66; PULSE 67; RESP 14; O2SAT 97
--- NOTE | 2025-07-04 14:31 | XR_ITS ---
FINAL REPORT CLINICAL HISTORY: Shortness of breath and chest pain COMPARISON: 05/30/2024 FINDINGS: A single frontal view of the chest was obtained. No acute pulmonary opacity is present. There is no evidence of effusion or pneumothorax. Mediastinum is unremarkable. Heart size is normal. IMPRESSION: No acute abnormality. No change from the prior exam. Reviewed, Interpreted and Dictated by Jessica Azar MD Transcribed by Carol Lee Authenticated and [facility]
[2025-07-04 14:36] LABS: Hematocrit 41.2 % (42.0-52.0); Hemoglobin 14.0 g/dL (14.1-18.0); Immature Granulocytes % 0.3 %; Mean Corpuscular HGB Conc 34.0 g/dL (31.8-35.4); Mean Corpuscular Hemoglobin 28.7 pg (27.0-31.2); Mean Corpuscular Volume 84.6 fl (80-94); Nucleated Red Blood Cells % 0 %; Platelet Count 206 K/mm3 (142-424); Red Blood Count 4.87 M/mm3 (4.60-6.20); Red Cell Distribution Width-SD 38.8 fL; White Blood Count 7.0 K/mm3 (4.8-10.8)
[2025-07-04 14:48] LABS: Alanine Aminotransferase 31 U/L (12-78); Albumin Level 4.3 g/dl (3.5-5.0); Albumin/Globulin Ratio 1.7 (1.1-1.8); Alkaline Phosphatase 92 U/L (38-126); Anion Gap 14.1 mEq/L (5-15); Aspartate Amino Transferase 47 U/L (17-59); Bilirubin,Total 0.8 mg/dl (0.2-1.3); Blood Urea Nitrogen 25 mg/dl (9-20); Calcium 9.1 mg/dl (8.4-10.2); Carbon Dioxide 25 mmol/L (22.0-30.0); Chloride 104 mmol/L (98-107); Creatinine Clearance Estimated 86 mL/min (50-200); Creatinine,Serum 1.20 mg/dl (0.66-1.25); Estimated Glomerular Filt Rate 62 ml/min (>60); GFR (African American) 75 ML/MIN (>60); Globulin 2.6 g/dL (1.3-3.2); Glucose 131 mg/dl (74-100); Potassium 4.1 mmoL/L (3.5-5.1); Sodium 139 mmol/L (136-145); Total Protein,Serum 6.9 g/dl (6.3-8.2)
[2025-07-04 14:49] LABS: Lipase 97 U/L (23-300); Magnesium 1.8 mg/dl (1.6-2.3)
[2025-07-04 14:51] LABS: INR 1.00 (0.9-1.1); Prothrombin Time 11.1 seconds (10.1-12.5)
[2025-07-04 14:58] LABS: NT Pro Brain Natriuretic Pep. 100 pg/mL (0-125)
[2025-07-04 15:00] VITALS: BP 122/68; PULSE 65; RESP 18; O2SAT 94
[2025-07-04 15:01] LABS: Troponin I < 0.01 ng/ml (0.00-0.034)
[2025-07-04 15:06] LABS: D-Dimer 0.57 ug/mL (0.0-0.5)
--- NOTE | 2025-07-04 15:12 | CT_ITS ---
FINAL REPORT TECHNIQUE: Thin section axial CT with contrast with multiplanar reconstruction This study was performed with techniques to keep radiation doses as low as reasonably achievable, (ALARA). Individualized dose reduction techniques using automated exposure control or adjustment of mA and/or kV according to the patient''s size were employed. CLINICAL HISTORY: Elevated D-dimer, DONALDSON, chest tightness FINDINGS: Pulmonary vessels enhance in normal fashion without evidence of embolism. Thoracic aorta shows no dissection or aneurysm. No pulmonary mass or infiltrate is present. There is no significant pleural effusion. There is no significant pericardial effusion. There is multifocal mediastinal and bilateral hilar adenopathy. Prevascular lymph node measures 22 x 13 mm, unchanged. Largest right hilar lymph node measures 28 mm, was 31 mm. Largest left hilar lymph node measures 22 mm, unchanged. Other areas of adenopathy are stable. IMPRESSION: 1. No evidence of pulmonary embolism. 2. No acute lung disease. 3. Extensive adenopathy which is stable and could be related to sarcoidosis or granulomatous disease as most likely causes. Reviewed, Interpreted and Dictated by Jessica Azar MD Transcribed by Surekha Santana Authenticated and [facility]
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
--- OUTSIDE RECORDS SUMMARY | 2025-07-04 15:16 | XMS_ITS | Clinical Summary ---
Author Organization [facility] Address [address] [place] [address] Care Team Providers Care Racing Mechanic Name Role Phone Unavailable Primary Care Provider Unavailabl e Allergies No known active allergies Medications No known medications Active Problems Problem Noted Date Diagnosed Date Disseminated herpes zoster 11/09/2016 Hepatitis C antibody positive in blood 7 Chronic back pain 10/26/2016 IV drug user 10/26/2016 Overview (10/26/2016): Previous Immunizations Immunization Administration Dates Next Due Hepatitis A 09/15/2017,03/04/2017 09/03/2017 Hepatitis B 09/15/2017 Hepatitis B Adult/Adolescent IM 04/05/2017,03/0409/03/2017 Family History Medical History Relation Name Comments Stomach cancer Father Relation Name Status Comments Father Mother Alive Social History Tobacco Use Types Packs/Day Years Used Date Smoking Tobacco: Former Tobacco Cessation:Counseling Given: Yes Alcohol Use Standard Drinks/Week Comments No 0 (1 standard drink = 0.6 oz pur e alcohol) Abuse Screen Answer Date Recorded Unsafe at Home or Work/School Not on file Feels Threatened by Someone? Not on file 05/2023 Does Anyone Keep You from Co ntacting Others or Doint Things Outside the Home? Not on file 06/21/2023 Physical Sign of Abuse Present Not on file 1 Housing Stability Answer Date Recorded Current Living Arrangements Not on file 05/2023 Potentially Unsafe Housing Conditions Not on lali e 06/21/2023 Family and Community Support Answer Johnny e Recorded Help with Day-to-Day Activities Not on file 06/21/2023 Lonely or Isolated Not on file 06/21/2023 Employment Answer Date Recorded Do you want help finding or keeping work or a anna b? Not on file 06/21/2023 Disabilities Answer Date Recorded Concentrating, Remembering, or Making Decisions Difficulty Not on file 06/21/2023 Doing Errands Independently Difficulty Not on fi le 06/21/2023 Education Answer Date Recorded Help with school or training? Not on file Preferred Language Not on file 06/21/2023 Sex and Gender Information Value Date Recorded Sex Assigned at Not on file Legal Sex Male 4:19 PM EDT Gender Identity Not on file Sexual Orientation Not on file Occupation Industry Job Start Date Job End Date self employed Not on file Not on file Not on file Last Filed Vital Signs Vital Sign Reading Time Taken Comments Blood Pressure 122/82 09/15/2017 7:57 AM EST Pulse 68 09/15/2017 7:57 AM EST Temperature 36.3 C (97.3 F) 09/15/2017 7:57 AM EST Respiratory Rate 16 09/15/2017 7:57 AM EST Oxygen Saturation 95% 09/15/2017 7:57 AM EST Inhaled Oxygen Concentration - - Weight 101 kg (223 lb) 09/15/2017 7:57 AM EST Height 182.9 cm (6') 09/15/2017 7:57 AM EST Body Mass Index 30.24 09/15/2017 7:57 AM EST Plan of Treatment Health Maintenance Due Date Last Done Comments COLOGUARD 2009 COLON CANCER SCREENING 5 YEA R SIGMOIDOSCOPY 2009 COLONOSCOPY 2009 [address] CANCER SCREENING 2009 CT COLONOGRAPHY 2009 FECAL OCCULT BLOOD TEST 2009 FIT Testing (1 year) 2009 Pneumococcal Vaccine 50+ (1 of 1 - PCV) 2014 ZOSTER VACCINE (1 of 2) 2014 ANNUAL PHYSICAL 06/24/2016 TDAP/TD VACCINES (2 - Td or Tdap) 03/13/2020 010 INFLUENZA VACCINE 04/13/2025 10/26/2016 (Declined) HEPATITIS C SCREENING Completed 09/15/2017 , 09/15/2017, 09/15/2017, Additional history exists Procedures Procedure Name Priority Date/Time Associated Diagnosis Comments HEPATITIS C GENOTYPE Routine 09/15/2017 8:29 AM EST Hep C w/o coma, chronic from Last 3 Months or Most Recently Relevant to Health Maintenance Results * Hepatitis C Genotype (09/15/2017 8:29 AM EST) Please note Comment 09/18/2017 6:14 AM EST [facility] Comment: This test was developed and its performance characteristics determined by [facility]. It has not been cleared or approved by the U.S. Food and Drug Administration. The FDA has determined that such clearance or approval is not necessary. This test is used for clinical purposes. It should not be regarded as investigational or for research. Hepatitis C Genotype Comment 09/18/2017 6:14 AM EST [facility] Comment: Specimen has insufficient hepatitis C virus RNA to obtain genotyping results. This genotyping assay should only be used for known HCV positive patients with HCV RNA levels above 1000 IU/mL. Blood Venipuncture / Unknown 09/15/2017 8:29 AM EST 09/15/2017 8:29 AM EST Narrative [facility] - 09/18/2017 6:14 AM EST Performed at: [address] [id number] Restaurant Crew Member: Efra Callahan MD, Phone: [phone] [place] APRN LAB BLOOD ORDERABLES Final Result Performing Organization Address [facility]/State/[facility] Co de Phone Number [facility] [address] [place] [address], from Last 3 Months or Most Recently Relevant to Health Maintenance [facility]
[2025-07-04] MEDS: IOPAMIDOL-370 (76%);100ML BOTTLE 70 ML IV (15:24)
[2025-07-04] MEDS: SODIUM CHLORIDE 0.9% 10ML SYR (RAD ONLY) 10 ML IV (15:24)
[2025-07-04] MEDS: 0.9 % SODIUM CHLORIDE 50 ML VIAL IV (15:24)
[2025-07-04 15:30] VITALS: BP 135/66; PULSE 59; O2SAT 95
[2025-07-04 16:00] VITALS: BP 128/74; PULSE 56; O2SAT 95
[2025-07-04 16:38] VITALS: BP 138/80; PULSE 57; RESP 16; TEMP 36.6; O2SAT 96
[2025-07-04] MEDS: BACITRACIN ZINC OINT 30GM TUBE TP (16:42)
== END 2025-07-04 16:39 | disposition home or self-care (01) ==
PROVIDERS: Physician Assistant; Emergency Provider Student in an Organized Health Care Education/Training Program
DX: R07.89 Other chest pain (principal); R06.09 Other forms of dyspnea; J84.10 Pulmonary fibrosis, unspecified; R59.0 Localized enlarged lymph nodes
CPT/HCPCS: 71045; 71275; 80053; 83690; 83735; 83880; 84484; 85025; 85378; 85610; 93005; 99285; Q9967

== ENCOUNTER 2025-07-10 11:09 | Outpatient (CLI) | payer BC, SELFPAY ==
--- OUTSIDE RECORDS SUMMARY | 2025-07-10 11:12 | XMS_ITS | Clinical Summary ---
[facility] Organization [facility] Address [address] [place] [address] Care Team Providers Care Gasoline Locomotive Crane Operator Name Role Phone Unavailable Primary Care Provider [...] - 09/18/2017 6:14 AM EST Performed at: [address] [id number] Avionics Systems Repairer: Efra Callahan MD, Phone: [phone] Mary [place] APRN LAB BLOOD ORDERABLES Final Result Performing Organization Address [facility]/State/[facility] Co de Phone Number [facility] [address] [place] [address], from Last 3 Months or Most Recently Relevant to Health Maintenance [facility]
--- OUTSIDE RECORDS SUMMARY | 2025-07-10 11:12 | XMS_ITS | Clinical Summary ---
Author Organization Healthcare Address [address] [place] [address] Care Team Providers Care Import Customs Clearing Agent Name Role Phone Pcp, No Primary Care [...] place to sleep or slept in a group home (including now)? No 06/01/2024 Utilities Answer Date [...] - Risk 60-74 years 1-dose series) 2024 [id number] Vaccine ( - 2024- season) 2025 07/06/2021, [...] Patient has decision-making capacity? Yes Care Teams Import Customs Clearing Agent Relationship Specialty Start Date End Date Pcp, No [address] [place] [address] PCP - General Family Medicine 10/19/23
--- OUTSIDE RECORDS SUMMARY | 2025-07-10 11:12 | XMS_ITS | Data Portability ---
Author Organization [employer] [facility] Address [address] [place] [address] Assessment Encounter Date Assessment Date Assessment LastModified by Organization Details LastModified Time 05/19/2023 05/19/2023 Patient's exam is benign at this time minus mild hypertension. Given the severity of his headache and the length of time it has occurred, will order a CT scan without contrast today. We will also complete labs as noted. Medications as noted to address both the migraines and his hypertension. EKG does not show acute changes at this time. Advised patient if he experiences return of chest pain, worsening headache to include dizziness, slurred speech, or other severe symptoms to go to the emergency department immediately. Not available 05/19/2023 09:37:20 Plan of Treatment Reminders Order Date Submit Date Provider Last Modified By Organization Details Last Modified Time Details Appointments None recorded. Lab CMP, serum or plasma 2022 023 [employer] [facility], [address], [place], [address], 3 05:40:29 CBC w/ auto diff 2022 023 [employer] [facility], [address], [place], [address], 3 05:40:30 HbA1c (hemoglobin A1c), blood 2022 023 WERNER Ming [facility], [address] [place] [address], [place], [address], 3 10:13:33 TSH, serum or plasma 2022 023 [place] [employer] [facility], [address], [place], [address], 3 05:40:31 lipid panel, serum 2022 023 [facility], [address], [place], [address], 4 16:55:54 Referral None recorded. Procedures None recorded. Surgeries None recorded. Imaging CT, head, w/o contrast 2022 023 [facility] [address], [place], [address], 3 09:16:30 Medication Orders sumatriptan 50 mg tablet 2022 023 [facility], [facility] [employer], [address], 3 08:58:34 lisinopril 10 mg tablet 2022 023 [facility], [address] [place] [address], [address], 3 08:58:36 Patient TargetsNo targets recorded. Patient InstructionsNo instructions recorded. Reason for Referral None Reported. Results Created Date Observation Date Name Description Value Unit Range Abnormal Flag Note LastModifiedBy Organization Detail LastModifiedTime 05/19/2005/20/2023 COMPR EHENS NESSA METAB OLIC PANEL glucose 82 mg/dL 65-99 normal Fasti ng refer ence inter rosa Not Available [facility] [address] [facility] [place], [address], 05/20/2023 07:27:09 05/19/20 23 05/20/2023 COMPR EHENS NESSA METAB OLIC PANEL urea nitrogen (BUN) 25 mg/dL 7-25 normal Not Available [facility] [address] [facility] [place], [address], 05/20/2023 07:27:09 05/19/20 23 05/20/2023 COMPR EHENS NESSA METAB OLIC PANEL creatinine 1.10 mg/dL 0.70-1 .30 normal Not Available [facility] [address] [facility] [place], [address], 05/20/2023 07:27:09 05/19/20 23 05/20/2023 COMPR EHENS NESSA METAB OLIC PANEL eGFR 78 mL/mi n/1.7 3m2 > or = 60 normal Not Available [facility] [address] [facility] [place], [address], 05/20/2023 07:27:09 05/19/20 23 05/20/2023 COMPR EHENS NESSA METAB OLIC PANEL BUN/creatini ne ratio SEE NOTE: (calc ) 6-22 Not Repor prasanna: BUN and Creat inine are withi n refer ence range . Not Available [facility] [address] [facility] [place], [address], 05/20/2023 07:27:09 05/19/20 23 05/20/2023 COMPR EHENS NESSA METAB OLIC PANEL sodium 140 mmol/ L 135-14 6 normal Not Available [facility] [address] [facility] [place], [address], 05/20/2023 07:27:09 05/19/20 23 05/20/2023 COMPR EHENS NESSA METAB OLIC PANEL potassium 4.7 mmol/ L 3.5-5. 3 normal Not Available [facility] [address] [facility] [place], [address], 05/20/2023 07:27:09 05/19/20 23 05/20/2023 COMPR EHENS NESSA METAB OLIC PANEL chloride 106 mmol/ L 98-110 normal Not Available [facility] [address] [place], [address], 05/20/2023 07:27:09 05/19/20 23 05/20/2023 COMPR EHENS NESSA METAB OLIC PANEL carbon dioxide 26 mmol/ L 20-32 normal Not Available [facility] [address] [facility] [place], [address], 05/20/2023 07:27:09 05/19/20 23 05/20/2023 COMPR EHENS NESSA METAB OLIC PANEL calcium 9.9 mg/dL 8.6-10 .3 normal Not Available [facility] [address] [place], [address], 05/20/2023 07:27:09 05/19/20 23 05/20/2023 COMPR EHENS NESSA METAB OLIC PANEL protein, total 7.0 g/dL 6.1-8. 1 normal Not Available [facility] [address] [facility] [place], [address], 05/20/2023 07:27:09 05/19/20 23 05/20/2023 COMPR EHENS NESSA METAB OLIC PANEL albumin 4.5 g/dL 3.6-5. 1 normal Not Available [facility] [address] [facility] [place], [address], 05/20/2023 07:27:09 05/19/20 23 05/20/2023 COMPR EHENS NESSA METAB OLIC PANEL globulin 2.5 g/dL_ (calc ) 1.9-3. 7 normal Not Available [facility] [address] [place], [address], 05/20/2023 07:27:09 05/19/20 23 05/20/2023 COMPR EHENS NESSA METAB OLIC PANEL albumin/glob ulin ratio 1.8 (calc ) 1.0-2. 5 normal Not Available [facility] [address] [place], [address], 05/20/2023 07:27:09 05/19/20 23 05/20/2023 COMPR EHENS NESSA METAB OLIC PANEL bilirubin, total 0.6 mg/dL 0.2-1. 2 normal Not Available [facility] [employer] [facility] [address] [place], [address], 05/20/2023 07:27:09 05/19/20 23 05/20/2023 COMPR EHENS NESSA METAB OLIC PANEL alkaline phosphatase 86 U/L 35-144 normal Not Available [facility] [address] [place], [address], 05/20/2023 07:27:09 05/19/20 23 05/20/2023 COMPR EHENS NESSA METAB OLIC PANEL AST 20 U/L 10-35 normal Not Available [facility] [employer] [facility] [address] [place], [address], 05/20/2023 07:27:09 05/19/20 23 05/20/2023 COMPR EHENS NESSA METAB OLIC PANEL ALT 27 U/L 9-46 normal Not Available [employer] [address] [place], [address], 05/20/2023 07:27:09 05/19/20 23 05/20/2023 CBC (INCL UDES DIFF/ PLT) white blood cell count 8.2 thous and/u L 3.8-10 .8 normal Not Available [employer] [address] [place], [address], 05/20/2023 05:40:30 05/19/20 23 05/20/2023 CBC (INCL UDES DIFF/ PLT) red blood cell count 5.38 duane on/uL 4.20-5 .80 normal Not Available [facility] [address] [place], [address], 05/20/2023 05:40:30 05/19/2005/20/2023 CBC (INCL UDES DIFF/ PLT) hemoglobin 15.3 g/dL 13.2-1 7.1 normal Not Available [facility] [address] [facility] [place], [address], 05/20/2023 05:40:30 05/19/2005/20/2023 CBC (INCL UDES DIFF/ PLT) hematocrit 46.7 % 38.5-5 0.0 normal Not Available [facility] [address] [facility] [place], [address], 05/20/2023 05:40:30 05/19/2005/20/2023 CBC (INCL UDES DIFF/ PLT) MCV 86.8 fL 80.0-1 00.0 normal Not Available [facility] [address] [facility] [place], [address], 05/20/2023 05:40:30 05/19/2005/20/2023 CBC (INCL UDES DIFF/ PLT) MCH 28.4 pg 27.0-3 3.0 normal Not Available [facility] [address] [place], [address], 05/20/2023 05:40:30 05/19/2005/20/2023 CBC (INCL UDES DIFF/ PLT) MCHC 32.8 g/dL 32.0-3 6.0 normal Not Available [facility] [address] [facility] [place], [address], 05/20/2023 05:40:30 05/19/2005/20/2023 CBC (INCL UDES DIFF/ PLT) RDW 13.4 % 11.0-1 5.0 normal Not Available [facility] [address] [place], [address], 05/20/2023 05:40:30 05/19/2005/20/2023 CBC (INCL UDES DIFF/ PLT) platelet count 236 thous and/u L 140-40 0 normal Not Available [facility] [address] [place], [address], 05/20/2023 05:40:30 05/19/2005/20/2023 CBC (INCL UDES DIFF/ PLT) MPV 11.1 fL 7.5-12 .5 normal Not Available [facility] [address] [place], [address], 05/20/2023 05:40:30 05/19/2005/20/2023 CBC (INCL UDES DIFF/ PLT) absolute neutrophils 5978 cells /uL 1500-7 800 normal Not Available [facility] [address], [place], [address], 05/20/2023 05:40:30 05/19/2005/20/2023 CBC (INCL UDES DIFF/ PLT) absolute lymphocytes 1402 cells /uL 850-39 00 normal Not Available [facility] [address], [place], [address], 05/20/2023 05:40:30 05/19/2005/20/2023 CBC (INCL UDES DIFF/ PLT) absolute monocytes 640 cells /uL 200-95 0 normal Not Available [facility] [address], [place], [address], 05/20/2023 05:40:30 05/19/2005/20/2023 CBC (INCL UDES DIFF/ PLT) absolute eosinophils 131 cells /uL 15-500 normal Not Available [facility] [address], [place], [address], 05/20/2023 05:40:30 05/19/2005/20/2023 CBC (INCL UDES DIFF/ PLT) absolute basophils 49 cells /uL 0-200 normal Not Available [facility] [address] [place], [address], 05/20/2023 05:40:30 05/19/2005/20/2023 CBC (INCL UDES DIFF/ PLT) neutrophils 72.9 % normal Not Available [facility] [address] [facility] [place], [address], 05/20/2023 05:40:30 05/19/2005/20/2023 CBC (INCL UDES DIFF/ PLT) lymphocytes 17.1 % normal Not Available [facility] [address] [facility] [place], [address], 05/20/2023 05:40:30 05/19/2005/20/2023 CBC (INCL UDES DIFF/ PLT) monocytes 7.8 % normal Not Available [facility] [address] [facility] [place], [address], 05/20/2023 05:40:30 05/19/2005/20/2023 CBC (INCL UDES DIFF/ PLT) eosinophils 1.6 % normal Not Available [facility] [address] [facility] [place], [address], 05/20/2023 05:40:30 05/19/2005/20/2023 CBC (INCL UDES DIFF/ PLT) basophils 0.6 % normal Not Available [facility] [address] [facility] [place], [address], 05/20/2023 05:40:30 05/19/2005/20/2023 TSH W/REF CIELO TO FT4 TSH w/reflex to FT4 2.34 mIU/L 0.40-4 .50 normal Not Available [facility] [address] [facility], [place], [address], 05/20/2023 10:08:46 05/19/20 23 05/19/2023 HbA1c (hemo globi n A1c), blood HbA1c 6.0 Not Available [address], [place], [address], 05/19/2023 08:48:34 05/19/20 23 05/19/2023 elect rocar diogr am No observ ation record ed. [address], [address], 05/19/2023 10:14:20 05/19/20 elect rocar diogr am No observ ation record ed. [email or web address] Not Available 02/2023 09:35:49 05/20/20 23 05/19/2023 CT, head, w/o contr ast No observ ation record ed. [email or web address] [facility] [address], [place], [address], 05/20/2023 10:38:15 Result Notes None recorded. Problems Name Problem SNOMED Code Status Onset Date Resolution Date Notes Provider Name and Address Organization Details Recorded Time Chest pain 97235144 Active [address], [address], [email or web address] 3 08:11:51 Migraine 64950547 Active 2022 CHRISTY LEIJAWHITLEY [address] [place] [address], [address], [email or web address] 3 08:35:38 Essential hypertension 85931587 Active [address], [address], [facility] [employer] 3 08:47:21 Fluttering heart 759559450 Active [address], [address], [employer] 10:59:16 Problem Notes None recorded. Procedures Surgical History Date Name Laterality Status Provider Name and Address Organization Details Recorded Time Colonoscopy completed BLADIMIR PERALTA [employer] 05/19/2023 07:59:35 Imaging Results None recorded. Procedure Notes None recorded. Medical Equipment None Reported. Allergies No known drug allergies Medications Name Sig Start Date Stop Date Status Note LastModified by Organization Details LastModified Time meloxicam 15 mg tablet TAKE 1 TABLET BY MOUTH ONCE DAILY 05/19 completed Not Available Not Available Not Available sumatriptan 50 mg tablet TAKE ONE TABLET BY MOUTH AND REPEAT IN 2 HOURS IF NEEDED UP TO A MAX OF 200 MG TOTAL IN 1 DAY active Not Available Not Available No t Available methocarbamol 750 mg tablet TAKE 1 TABLET BY MOUTH 4 TIMES DAILY PRN active Not Available Not Available No t Available lisinopril 10 mg tablet TAKE 1 TABLET BY MOUTH ONCE DAILY active Not Available Not Available No t Available ibuprofen 600 mg tablet TAKE 1 TABLET BY MOUTH EVERY 6 HOURS NEEDED FOR MILD PAIN FOR UP TO 10 DAYS 05/19 completed Not Available Not Available Not Available chlorhexidine gluconate 0.12 % mouthwash RINSE WITH 15ML IN MOUTH OR THROAT IF NEEDED FOR WOUND CARE FOR UP TO 14 DAYS 05/19 completed Not Available Not Available Not Available Vitals Date Recorded Systolic And Diastolic Provider Name and Address Organization Details Last Updated DateTime 05/19/2023 148/82 mm[Hg] LIVE QUINTEROS[address]ICK[address], [address], [employer] 05/19/2023 09:33:00 Date Recorded Body weight Body mass index (BMI) Body height Heart rate Oxygen saturation Oxygen saturation in Arterial blood by Pulse oximetry Systolic And Diastolic Provider Name and Address Organization Details Last Updated DateTime 3 15355.6 9 g 26.9 kg/m2 182.88 cm 62 /min 96 % 96 % 136/83 mm[Hg] BLADIMIR PERALTA [employer] 08:07:45 Social History Question Answer Notes LastModified by Organizat ion Details LastModified Time Tobacco Smoking Status Former Smoker BLADIMIRNOAH [place], [facility] [employer] 05/19/2023 07:59:17 Do You Have An Advance Directive? No [email or web address] Information not available 05/19/2023 Is Your Home Air Conditioned? Yes [email or web address] Information not available 05/19/2023 Do You Wear A Helmet When Biking? No [email or web address] Information not available 05/19/2023 Are You Blind Or Do You Have Difficulty Seeing? No [email or web address] Information not available 05/19/2023 What Is Your Level Of Caffeine Consumption? Occasional Information not available 05/19/2023 Are You A Caregiver? No [email or web address] Information not available 05/19/2023 Have You Been To An Area Known To Be High Risk For COVID-19? No [email or web address] Information not available 05/19/2023 Are You Deaf Or Do You Have Serious Difficulty Hearing? No [email or web address] Information not available 05/19/2023 What Type Of Diet Are You Following? REGULAR Information not available 05/19/2023 Who Is Your Employer? Self Employed [email or web address] Information not available 05/19/2023 How Many Days Of Moderate To Strenuous Exercise, Like A Brisk Walk, Did You Do In The Last 7 Days? 2 [email or web address] Information not available 05/19/2023 Have There Been Any Changes To Your Family Or Social Situation? No [email or web address] Information no t available 05/19/2023 When Did You Quit Smoking? 16+yearssincel mark [email or web address] Information not available 05/19/2023 Are There Any Guns Present In Your Home? No [email or web address] Information not available 05/19/2023 Which Of Your Hands Is Dominant? Right Information not available 05/19/2023 Do You Have A Medical Power Of Immigration Coordinator? No [email or web address] Information not available 05/19/2023 What Was The Date Of Your Most Recent Tobacco Screening? 05/19/2023 Information not available 05/19/2023 Are There Any Occupational Health Risks Where You Work? No [email or web address] Information not available 05/19/2023 What Is Your Current Pack Years? 30ormorepackye ars [email or web address] Information not available 05/19/2023 Do You Have Any Pets? Yes [email or web address] Information not available 05/19/2023 Do You Use Protection During Sex? No [email or web address] Information not available 05/19/2023 What Is Your Relationship Status? [email or web address] Information not available 05/19/2023 Have You Repeated Any Grades? No [email or web address] Information not available 05/19/2023 Do You Use Your Seat Belt Or Car Seat Routinely? Yes [email or web address] Information not available 05/19/2023 Are You Sexually Active? Yes [email or web address] Information not available 05/19/2023 Do You Have Any Siblings? Sister [email or web address] Information not available 05/19/2023 Do You Have Smoke And Carbon Monoxide Detectors In Your Home? Yes [email or web address] Information not available 05/19/2023 At What Age Did You Start Smoking Tobacco? 11 [email or web address] Information not available 05/19/2023 Are You Passively Exposed To Smoke? Yes [email or web address] Information no t available 05/19/2023 Are There Any Smokers In Your House? Yes [email or web address] Information not available 05/19/2023 How Much Tobacco Do You Smoke? 2 PPD Information not available 05/19/2023 Do You Use Sunscreen Routinely? No [email or web address] Information not available 05/19/2023 How Many Years Have You Smoked Tobacco? 30 [email or web address] Information not available 05/19/2023 Have You Recently Traveled Abroad? No Information not available 05/19/2023 Do You Have Difficulty Walking Or Climbing Stairs? No [email or web address] Information not available 05/19/2023 Do You Have Any Dietary Restrictions? No [email or web address] Information not available 05/19/2023 Sex: Male Functional Status Question Answer Note LastModified by Organizat ion Details LastModified Time Do you use any illicit or recreational drugs? No [email or web address] Information not available 05/19/2023 Do you or have you ever used any other forms of tobacco or nicotine? No [email or web address] Information not available 05/19/2023 What is your level of alcohol consumption? None [email or web address] Information not available 05/19/2023 Are you currently employed? Yes [email or web address] Information not available 05/19/2023 Do you have transportation difficulties? No Information not available 05/19/2023 Are you able to walk independently without assistance or assistive devices? YESWOREST Information not available 05/19/2023 Do you have difficulty doing errands alone? No [email or web address] Information not available 05/19/2023 Are you able to care for yourself independently? Yes [email or web address] Information not available 05/19/2023 Do you have difficulty dressing, bathing, grooming, or toileting? No [email or web address] Information not available 05/19/2023 What is your exercise level? Occasional [email or web address] Information not available 05/19/2023 Mental Status Question Answer Note LastModified by Organization D etails LastModified Time Do you have difficulty concentrating, remembering or making decisions? No [email or web address] Information no t available 05/19/2023 Are you or have you been involved with bullying? No [email or web address] Information not available 05/19/2023 Family History Relationship Description Onset Age of this Age Resolved Age Notes LastModified by Organization Details LastModified Time Mother Depressive disorder [email or web address] Not available 02/2023 07:59:17 Mother Malignant neoplasm of lung [email or web address] Not available 02/2023 07:59:17 Maternal Grandmother Malignant neoplasm of lung [email or web address] Not available 02/2023 07:59:17 Medical History Condition Response Emergency room visit since last appointm ent. N Arthritis Y Headaches Y Hospitalizations N Hepatitis Y Past Encounters Encounter ID Performer Location Encounter Start Date Encounter Closed Date Diagnosis/Indication Diagnosis SNOMED-CT Code Diagnosis ICD10 Code Diagnosis IMO Codes Diagnosis Note [id number] LIVE [facility]INTEROS [address] [address] 05/19/2023 07:50:43 05/19/2023 09:08:59 Migraine 19646374 G43.909 Essential hypertension 20342840 I10 Health Concerns Section Related Observation LastModified by Organization Detai ls LastModified Time None Recorded Concern Status LastModified by Organization Details LastModified Time None Recorded Advance Directives Directive N: Payers Insurance Date Sequence Insurance Name Policy Number Policy Graham Covered Member ID Graham Member ID Guarantor Name 05/18/2023 1 *SELF PAY* Jamie Laird Notes Date Note Type Note Provider Name and Address Organization Details Recorded Time 05/19/2023 text/html ROS as noted in the HPI Headaches occurring daily for months. Frontal throbbing, at times in base of neck. Cool compress helps at times. Light sensitive. Very fews days over the past 2 months where he has not had a headache. Period of heart racing a few days ago. Pulse at the time was normal. He reported some chest pain at that time that self resolved. History of brain cancer in the mother's side of the family. LIVE QUINTEROS, [employer] [address] [place], [address], [facility] [employer] 05/19/2023 09:38:55
[2025-07-10 12:03] LABS: C-Reactive Protein 3.2 mg/L (0-4)
[2025-07-11 13:12] LABS: Antinuclear Antibodies (ANA) Negative (Negative)
[2025-07-13 16:20] LABS: Histoplasma Antibody Quant Negative (Neg:<1:1)
== END 2025-07-10 23:59 | disposition home or self-care (01) ==
LOC: LAB 11:09
PROVIDERS: Visit Provider Internal Medicine Pulmonary Disease
DX: J84.10 Pulmonary fibrosis, unspecified (principal); R59.0 Localized enlarged lymph nodes; R91.8 Other nonspecific abnormal finding of lung field
CPT/HCPCS: 36415; 82164; 86140; 86606; 86612; 86698; 87385

== ENCOUNTER 2025-07-15 18:54 | Emergency (ER) | payer BC, SELFPAY ==
[2025-07-15 18:58] VITALS: BP 151/79; PULSE 65; RESP 18; TEMP 36.8; O2SAT 100; BMI 27.1
--- NOTE | 2025-07-15 19:02 | ECG_ITS ---
APPROVED REPORT Exam: Resting ECG HR:67 bpm ECG Measurements Heart Rate 67 AXES WV 149 P 81 QRSd 89 QRS 59 QT 365 T 79 QTc 380 Conclusion SINUS RHYTHM NORMAL ECG UNCONFIRMED REPORT Normal sinus rhythm. No ST elevation or depression. Electronically signed by : VICKY MONTERROSO, 07/16/2025 22:16:57
--- OUTSIDE RECORDS SUMMARY | 2025-07-15 19:09 | XMS_ITS | Data Portability ---
Author Organization [employer] [facility] - MSE Address [address] [place] [address] Assessment Encounter Date Assessment Date Assessment LastModified [...] Lab CMP, serum or plasma 2022 023 [employer] [facility], [address], [place], [address], 3 05:40:29 CBC w/ auto diff 2022 023 [employer] [facility], [address], [place], [address], 3 05:40:30 HbA1c (hemoglobin A1c), blood 2022 023 WERN[facility], [address] [place] [address], [place], [address], 3 10:13:33 TSH, serum or plasma 2022 023 [place] [employer] [facility], [address], [place], [address], 3 05:40:31 lipid panel, serum 2022 023 [email or web address] [facility], [address], [place], [address], 4 16:55:54 Referral None recorded. Procedures None recorded. Surgeries None recorded. Imaging CT, head, w/o contrast 2022 023 [facility] (Scheduling), [address], [place], [address], 3 09:16:30 Medication Orders sumatriptan 50 mg tablet 2022 023 [facility], [facility] [place], [address], 3 08:58:34 lisinopril 10 mg tablet 2022 023 [facility], [address] [place] [address], [address], 3 08:58:36 Patient TargetsNo targets recorded. Patient InstructionsNo instructions recorded. Reason for Referral None Reported. Results Created Date Observation Date Name Description Value Unit Range Abnormal Flag Note LastModifiedBy Organization Detail LastModifiedTime 05/19/2005/20/2023 COMPR EHENS NESSA METAB OLIC PANEL glucose 82 mg/dL 65-99 normal Fasti ng refer ence inter rosa Not Available [facility] [address] [facility] [place], [address], 05/20/2023 07:27:09 05/19/20 23 05/20/2023 COMPR EHENS NESSA METAB OLIC PANEL urea nitrogen (BUN) 25 mg/dL 7-25 normal Not Available [facility] [address] [facility] [[email or web address], [address], 05/20/2023 07:27:09 05/19/20 23 05/20/2023 COMPR EHENS NESSA METAB OLIC PANEL creatinine 1.10 mg/dL 0.70-1 .30 normal Not Available [facility] [address] [email or web address] [place], [address], 05/20/2023 07:27:09 05/19/20 23 05/20/2023 COMPR EHENS NESSA METAB OLIC PANEL eGFR 78 mL/mi n/1.7 3m2 > or = 60 normal Not Available [facility] [address] [facility] [[email or web address], [address], 05/20/2023 07:27:09 05/19/20 23 05/20/2023 COMPR EHENS NESSA METAB OLIC PANEL BUN/creatini ne ratio SEE NOTE: (calc ) 6-22 Not Repor prasanna: BUN and Creat inine are withi n refer ence range . Not Available [facility] [address] [facility] [[email or web address], [address], 05/20/2023 07:27:09 05/19/20 23 05/20/2023 COMPR EHENS NESSA METAB OLIC PANEL sodium 140 mmol/ L 135-14 6 normal Not Available [facility] [address] [facility] [[email or web address], [address], 05/20/2023 07:27:09 05/19/20 23 05/20/2023 COMPR EHENS NESSA METAB OLIC PANEL potassium 4.7 mmol/ L 3.5-5. 3 normal Not Available [employer] [address] [facility] [[email or web address], [address], 05/20/2023 07:27:09 05/19/20 23 05/20/2023 COMPR EHENS NESSA METAB OLIC PANEL chloride 106 mmol/ L 98-110 normal Not Available [facility] [address] [place], [address], 05/20/2023 07:27:09 05/19/20 23 05/20/2023 COMPR EHENS NESSA METAB OLIC PANEL carbon dioxide 26 mmol/ L 20-32 normal Not Available [facility] [address] [facility] [[email or web address], [address], 05/20/2023 07:27:09 05/19/20 23 05/20/2023 COMPR EHENS NESSA METAB OLIC PANEL calcium 9.9 mg/dL 8.6-10 .3 normal Not Available [facility] [address] [place], [address], 05/20/2023 07:27:09 05/19/20 23 05/20/2023 COMPR EHENS NESSA METAB OLIC PANEL protein, total 7.0 g/dL 6.1-8. 1 normal Not Available [facility] [address] [facility] [[email or web address], [address], 05/20/2023 07:27:09 05/19/20 23 05/20/2023 COMPR EHENS NESSA METAB OLIC PANEL albumin 4.5 g/dL 3.6-5. 1 normal Not Available [facility] [address] [facility] [[email or web address], [address], 05/20/2023 07:27:09 05/19/20 23 05/20/2023 COMPR EHENS NESSA METAB OLIC PANEL globulin 2.5 g/dL_ (calc ) 1.9-3. 7 normal Not Available [facility] [address] [place], [address], 05/20/2023 07:27:09 05/19/20 23 05/20/2023 COMPR EHENS NESSA METAB OLIC PANEL albumin/glob ulin ratio 1.8 (calc ) 1.0-2. 5 normal Not Available [employer] [facility] [address] [place], [address], 05/20/2023 07:27:09 05/19/20 23 05/20/2023 COMPR EHENS NESSA METAB OLIC PANEL bilirubin, total 0.6 mg/dL 0.2-1. 2 normal Not Available [facility] [employer] [facility] [address] [place], [address], 05/20/2023 07:27:09 05/19/20 23 05/20/2023 COMPR EHENS NESSA METAB OLIC PANEL alkaline phosphatase 86 U/L 35-144 normal Not Available [facility] [address] [place], [address], 05/20/2023 07:27:09 05/19/20 23 05/20/2023 COMPR EHENS NESSA METAB OLIC PANEL AST 20 U/L 10-35 normal Not Available [facility] [employer] [facility] [address] [place], [address], 05/20/2023 07:27:09 05/19/20 23 05/20/2023 COMPR EHENS NESSA METAB OLIC PANEL ALT 27 U/L 9-46 normal Not Available [employer] [facility] [address] [place], [address], 05/20/2023 07:27:09 05/19/20 23 05/20/2023 CBC (INCL UDES DIFF/ PLT) white blood cell count 8.2 thous and/u L 3.8-10 .8 normal Not Available [employer] [facility] [address] [place], [address], 05/20/2023 05:40:30 05/19/20 23 05/20/2023 CBC (INCL UDES DIFF/ PLT) red blood cell count 5.38 duane on/uL 4.20-5 .80 normal Not Available [employer] [facility] [address] [place], [address], 05/20/2023 05:40:30 05/19/2005/20/2023 CBC (INCL UDES DIFF/ PLT) hemoglobin 15.3 g/dL 13.2-1 7.1 normal Not Available [facility] [address] [facility] [[email or web address], [address], 05/20/2023 05:40:30 05/19/2005/20/2023 CBC (INCL UDES DIFF/ PLT) hematocrit 46.7 % 38.5-5 0.0 normal Not Available [facility] [address] [facility] [[email or web address], [address], 05/20/2023 05:40:30 05/19/2005/20/2023 CBC (INCL UDES DIFF/ PLT) MCV 86.8 fL 80.0-1 00.0 normal Not Available [facility] [address] [facility] [[email or web address], [address], 05/20/2023 05:40:30 05/19/2005/20/2023 CBC (INCL UDES DIFF/ PLT) MCH 28.4 pg 27.0-3 3.0 normal Not Available [facility] [place], [address], 05/20/2023 05:40:30 05/19/2005/20/2023 CBC (INCL UDES DIFF/ PLT) MCHC 32.8 g/dL 32.0-3 6.0 normal Not Available [facility] [address] [facility] [[email or web address], [address], 05/20/2023 05:40:30 05/19/2005/20/2023 CBC (INCL UDES DIFF/ PLT) RDW 13.4 % 11.0-1 5.0 normal Not Available [facility] [address] [facility] [place], [address], 05/20/2023 05:40:30 05/19/2005/20/2023 CBC (INCL UDES DIFF/ PLT) platelet count 236 thous and/u L 140-40 0 normal Not Available [facility] [address] [place], [address], 05/20/2023 05:40:30 05/19/2005/20/2023 CBC (INCL UDES DIFF/ PLT) MPV 11.1 fL 7.5-12 .5 normal Not Available [facility] [address] [place], [address], 05/20/2023 05:40:30 05/19/2005/20/2023 CBC (INCL UDES DIFF/ PLT) absolute neutrophils 5978 cells /uL 1500-7 800 normal Not Available [facility] [address], [place], [address], 05/20/2023 05:40:30 05/19/2005/20/2023 CBC (INCL UDES DIFF/ PLT) absolute lymphocytes 1402 cells /uL 850-39 00 normal Not Available [facility] [address], [place], [address], 05/20/2023 05:40:30 05/19/2005/20/2023 CBC (INCL UDES DIFF/ PLT) absolute monocytes 640 cells /uL 200-95 0 normal Not Available [facility] [address], [place], [address], 05/20/2023 05:40:30 05/19/2005/20/2023 CBC (INCL UDES DIFF/ PLT) absolute eosinophils 131 cells /uL 15-500 normal Not Available [facility] [address], [place], [address], 05/20/2023 05:40:30 05/19/2005/20/2023 CBC (INCL UDES DIFF/ PLT) absolute basophils 49 cells /uL 0-200 normal Not Available [facility] [address] [place], [address], 05/20/2023 05:40:30 05/19/2005/20/2023 CBC (INCL UDES DIFF/ PLT) neutrophils 72.9 % normal Not Available [facility] [address] [facility] [[email or web address], [address], 05/20/2023 05:40:30 05/19/2005/20/2023 CBC (INCL UDES DIFF/ PLT) lymphocytes 17.1 % normal Not Available [facility] [address] [email or web address] [place], [address], 05/20/2023 05:40:30 05/19/2005/20/2023 CBC (INCL UDES DIFF/ PLT) monocytes 7.8 % normal Not Available [facility] [address] [email or web address] [place], [address], 05/20/2023 05:40:30 05/19/2005/20/2023 CBC (INCL UDES DIFF/ PLT) eosinophils 1.6 % normal Not Available [facility] [address] [email or web address] [place], [address], 05/20/2023 05:40:30 05/19/2005/20/2023 CBC (INCL UDES DIFF/ PLT) basophils 0.6 % normal Not Available [facility] [address] [email or web address] [place], [address], 05/20/2023 05:40:30 05/19/2005/20/2023 TSH W/REF CIELO TO FT4 TSH w/reflex to FT4 2.34 mIU/L 0.40-4 .50 normal Not Available [facility] [address] [facility], [place], [address], 05/20/2023 10:08:46 05/19/20 23 05/19/2023 HbA1c (hemo globi n A1c), blood HbA1c 6.0 Not Available [address], [place], [address], 05/19/2023 08:48:34 05/19/20 23 05/19/2023 elect rocar diogr am No observ ation record ed. [address], [address], 05/19/2023 10:14:20 05/19/20 elect rocar diogr am No observ ation record ed. [email or web address] Not Available 02/2023 09:35:49 05/20/20 23 05/19/2023 CT, head, w/o contr ast No observ ation record ed. [email or web address] [facility] [address], [place], [address], 05/20/2023 10:38:15 Result Notes None recorded. Problems Name Problem SNOMED Code Status Onset Date Resolution Date Notes Provider Name and Address Organization Details Recorded Time Chest pain 96836163 Active [address], [address], [employer] 3 08:11:51 Migraine 08275816 Active 2022 CHRISTY LEIJAWHITLEY [address] [place] [address], [address], [employer] 3 08:35:38 Essential hypertension 72300026 Active [address], [address], [facility] [employer] 3 08:47:21 Fluttering heart 349679486 Active [address], [address], [employer] 10:59:16 Problem Notes None recorded. Procedures Surgical History Date Name Laterality Status Provider Name and Address Organization Details Recorded Time Colonoscopy completed BLADIMIR PERALTA [employer] 05/19/2023 07:59:35 Imaging Results None recorded. [...] Last Updated DateTime 05/19/2023 148/82 mm[Hg] LIVE QUINTEROSMICK[address], [address], [employer] 05/19/2023 09:33:00 Date Recorded Body weight Body mass index (BMI) Body height Heart rate Oxygen saturation Oxygen saturation in Arterial blood by Pulse oximetry Systolic And Diastolic Provider Name and Address Organization Details Last Updated DateTime 3 [address].6 9 g 26.9 kg/m2 182.88 cm 62 /min 96 % 96 % 136/83 mm[Hg] BLADIMIR PERALTA [employer] 08:07:45 Social History Question Answer Notes LastModified by Organizat ion Details LastModified Time Tobacco Smoking Status Former Smoker BLADIMIRNOAH chino, [facility] [employer] 05/19/2023 07:59:17 Do You Have An Advance Directive? No [email or web address] Information not available 05/19/2023 Is Your Home Air Conditioned? Yes [email or web address] Information not available 05/19/2023 Do You Wear A Helmet When Biking? No [email or web address] Information not available 05/19/2023 Are You Blind Or Do You Have Difficulty Seeing? No [email or web address] Information not available 05/19/2023 What Is Your Level Of Caffeine Consumption? Occasional [email or web address] Information not available 05/19/2023 Are You A Caregiver? No [email or web address] Information not available 05/19/2023 Have You Been To An Area Known To Be High Risk For COVID-19? No [email or web address] Information not available 05/19/2023 Are You Deaf Or Do You Have Serious Difficulty Hearing? No [email or web address] Information not available 05/19/2023 What Type Of Diet Are You Following? REGULAR [email or web address] Information not available 05/19/2023 Who Is Your Employer? Self Employed [email or web address] Information not available 05/19/2023 How Many Days Of Moderate To Strenuous Exercise, Like A Brisk Walk, Did You Do In The Last 7 Days? 2 [email or web address] Information not available 05/19/2023 Have There Been Any Changes To Your Family Or Social Situation? No [email or web address] Information no t available 05/19/2023 When Did You Quit Smoking? 16+yearssincel mark [email or web address] Information not available 05/19/2023 Are There Any Guns Present In Your Home? No [email or web address] Information not available 05/19/2023 Which Of Your Hands Is Dominant? Right [email or web address] Information not available 05/19/2023 Do You Have A Medical Power Of Building Construction Contractor? No [email or web address] Information not available 05/19/2023 What Was The Date Of Your Most Recent Tobacco Screening? 05/19/2023 [email or web address] Information not available 05/19/2023 Are There Any Occupational Health Risks Where You Work? No [email or web address] Information not available 05/19/2023 What Is Your Current Pack Years? 30ormorepackye ars [email or web address] Information not available 05/19/2023 Do You Have Any Pets? Yes [email or web address] Information not available 05/19/2023 Do You Use Protection During Sex? No [email or web address] Information not available 05/19/2023 What Is Your Relationship Status? [email or web address] Information not available 05/19/2023 Have You Repeated Any Grades? No [email or web address] Information not available 05/19/2023 Do You Use Your Seat Belt Or Car Seat Routinely? Yes [email or web address] Information not available 05/19/2023 Are You Sexually Active? Yes [email or web address] Information not available 05/19/2023 Do You Have Any Siblings? Sister [email or web address] Information not available 05/19/2023 Do You Have Smoke And Carbon Monoxide Detectors In Your Home? Yes [email or web address] Information not available 05/19/2023 At What Age Did You Start Smoking Tobacco? 11 [email or web address] Information not available 05/19/2023 Are You Passively Exposed To Smoke? Yes [email or web address] Information no t available 05/19/2023 Are There Any Smokers In Your House? Yes [email or web address] Information not available 05/19/2023 How Much Tobacco Do You Smoke? 2 PPD [email or web address] Information not available 05/19/2023 Do You Use Sunscreen Routinely? No [email or web address] Information not available 05/19/2023 How Many Years Have You Smoked Tobacco? 30 [email or web address] Information not available 05/19/2023 Have You Recently Traveled Abroad? No [email or web address] Information not available 05/19/2023 Do You Have Difficulty Walking Or Climbing Stairs? No [email or web address] Information not available 05/19/2023 Do You Have Any Dietary Restrictions? No [email or web address] Information not available 05/19/2023 Sex: Male Functional Status Question Answer Note LastModified by Organizat ion Details LastModified Time Do you use any illicit or recreational drugs? No [email or web address] Information not available 05/19/2023 Do you or have you ever used any other forms of tobacco or nicotine? No [email or web address] Information not available 05/19/2023 What is your level of alcohol consumption? None [email or web address] Information not available 05/19/2023 Are you currently employed? Yes [email or web address] Information not available 05/19/2023 Do you have transportation difficulties? No olvavldxv038 Information not available 05/19/2023 Are you able to walk independently without assistance or assistive devices? YESWOREST [email or web address] Information not available 05/19/2023 Do you have difficulty doing errands alone? No Information not available 05/19/2023 Are you able to care for yourself independently? Yes [email or web address] Information not available 05/19/2023 Do you have difficulty dressing, bathing, grooming, or toileting? No [email or web address] Information not available 05/19/2023 What is your exercise level? Occasional [email or web address] Information not available 05/19/2023 Mental Status Question Answer Note LastModified by Organization D etails LastModified Time Do you have difficulty concentrating, remembering or making decisions? No [email or web address] Information no t available 05/19/2023 Are you or have you been involved with bullying? No [email or web address] Information not available 05/19/2023 Family History Relationship Description Onset Age of this Age Resolved Age Notes LastModified by Organization Details LastModified Time Mother Depressive disorder [email or web address] Not available 02/2023 07:59:17 Mother Malignant neoplasm of lung [email or web address] Not available 02/2023 07:59:17 Maternal Grandmother Malignant neoplasm of lung [email or web address] Not available 02/2023 07:59:17 Medical History Condition Response Emergency room visit since last appointm ent. N Arthritis Y Headaches Y Hospitalizations N Hepatitis Y Past Encounters Encounter ID Performer Location Encounter Start Date Encounter Closed Date Diagnosis/Indication Diagnosis SNOMED-CT Code Diagnosis ICD10 Code Diagnosis IMO Codes Diagnosis Note [id number] LIVE QUINTEROS [address] [address] 05/19/2023 07:50:43 05/19/2023 09:08:59 Migraine 69173761 G43.909 Essential hypertension 63238705 I10 Health Concerns Section Related Observation LastModified [...] mother's side of the family. LIVE QUINTEROS, PUBLICITY EXPERT-[employer] [address] [place], [address], [facility] [employer] 05/19/2023 09:38:55
--- OUTSIDE RECORDS SUMMARY | 2025-07-15 19:09 | XMS_ITS | Clinical Summary ---
[facility] Organization [facility] Address [address] [place] [address] Care Team Providers Care Manager Summer Name Role Phone Unavailable Primary Care Provider [...] - 09/18/2017 6:14 AM EST Performed at: [address] [id number] [employer] Gun Assembler: Efra Callahan MD, Phone: [phone] [place] APRN LAB BLOOD ORDERABLES Final Result Performing Organization Address [facility]/State/[facility] Co de Phone Number [facility] [address] [place] [address], from Last 3 Months or Most Recently Relevant to Health Maintenance [facility]
--- OUTSIDE RECORDS SUMMARY | 2025-07-15 19:09 | XMS_ITS | Clinical Summary ---
Author Organization Healthcare Address [address] [place] [address] Care Team Providers Care Thread Drawer Name Role Phone Pcp, No Primary Care [...] place to sleep or slept in a fpc (including now)? No 06/01/2024 Utilities Answer Date [...] - Risk 60-74 years 1-dose series) 2024 [id number] Vaccine ( - 2024- season) 2025 07/06/2021, [...] Patient has decision-making capacity? Yes Care Teams Thread Drawer Relationship Specialty Start Date End Date Pcp, No [address] [place] [address] PCP - General Family Medicine 10/19/23
--- NOTE | 2025-07-15 19:31 | XR_ITS ---
PROCEDURE INFORMATION: Exam: XR Chest Exam date and time: 07/15/2025 7:56 PM Age: 59 years old Clinical indication: Pain; Chest pressure; Additional info: Chest pain, shortness of breath TECHNIQUE: Imaging protocol: Radiologic exam of the chest. Views: 1 view. COMPARISON: CT ANGIO CHEST PE PROTOCOL 07/04/2025 3:24 PM FINDINGS: Lungs: Unremarkable. No consolidation. Calcified granulomas right mid to upper lung field again noted. Pleural spaces: Unremarkable. No pleural effusion. No pneumothorax. Heart/Mediastinum: Unremarkable. No cardiomegaly. Bones/joints: Unremarkable. IMPRESSION: Stable chest x-ray with no acute disease.
--- NOTE | 2025-07-15 19:31 | PC.NURSE ---
ed provider at the bedside
--- NOTE | 2025-07-15 19:38 | ED_ITS ---
Discharge Plan Disposition Patient Disposition: Home, Self-Care Prescriptions Prescriptions: No Action meloxicam 15 mg tablet 15 mg PO DAILY methocarbamol 750 mg tablet 750 mg PO QID lisinopril 10 mg tablet 10 mg PO DAILY Qty: 90 3RF albuterol sulfate [Ventolin HFA] 90 mcg/actuation HFA aerosol inhaler 2 puff inhalation Q6H PRN (Reason: shortness of breath or wheezing) Qty: 8.5 2RF budesonide-formoterol [Symbicort] 160-4.5 mcg/actuation HFA aerosol inhaler 2 puff inhalation BID Qty: 10.2 2RF Referrals Follow up/Referrals: Provider,Referral, MD [Primary Care Provider, Medical] - See instructions Activity Restrictions/Add. Instructions Additional Instructions/Restrictions: I encourage you to follow-up with your workers compensation claims examiner tomorrow morning as scheduled. You will likely need your episodes of chest pain worked up further and they can talk to you about controlling your blood pressure better. If you develop any new or worsening symptoms, or if you become concerned for your health for any reason, return to the emergency department for evaluation Clinical Impressions Clinical Impression: Chest pain Print Language Print Language: Upper Sorbian Discharge ED Provider: Hank Fatima General Chief Complaint: Chest Pain Stated Complaint: headache,high blood pressure Time Seen by Provider: 07/15/25 19:18 Mode of Arrival: Ambulatory Source of Information: Patient and Spouse Description of Symptoms (Recalled from ER Triage Doc. by RN): patient presents for chest pain that started 30 minutes ago. patient was in excruciating pain , rating it 10/10. patient stated it radiated down both arms, denies radiation thorugh the back or into the jaw/neck. History of Present Illness HPI narrative: Shadi Laird is a 59y male with a past medical history of previous tobacco use, lung nodules who presents to the emergency department for 2 weeks of progressively worsening shortness of breath and chest pain. Patient states that with exertion, such as walking up a hill or working, he will develop pains in the middle of his chest that spreads out throughout both chest and into both biceps. He does report some shortness of breath with this as well. He states that at rest, the pain seems to improve. He was seen in the emergency department 1 week ago and was told he has lung nodules/granulomas and possible sarcoidosis versus histoplasmosis and was sent to pulmonology here with histoplasmosis and sarcoidosis workup pending. He states that today, the pain seems to be worse with exertion but is currently pain-free. He states that he does not have any history of heart disease that he is aware of. He reports a remote history of drug abuse but denies any currently. He denies any fevers or cough or abdominal pain or nausea or vomiting. Patient states that he has an appointment with his workers compensation claims examiner tomorrow. Patient does state that he has a history of hypertension but that his blood pressure was elevated to 170s systolic today and that is abnormal for him. Related Data Home Medications ?Medication ?Instructions ?Recorded ?Confirmed meloxicam 15 mg tablet 15 mg PO DAILY 06/08/2306/14 methocarbamol 750 mg tablet 750 mg PO QID 06/08/23 Previous Rx's ?Medication ?Instructions ?Recorded lisinopril 10 mg tablet 10 mg PO DAILY #90 tabs 10/07 albuterol sulfate 90 mcg/actuation 2 puff inhalation Q 6H PRN 07/10/25 aerosol inhaler (Ventolin HFA) shortness of breath or wheezing #8.5 grams budesonide-formoterol HFA 160 2 puff inhalation BID #1 0.2 grams 07/10/25 mcg-4.5 mcg/actuation aerosol inhaler (Symbicort) Allergies Allergy/AdvReac Type Severity Reaction Status Date / Time No Known Allergies Allergy Verified 07/10/25 10:14 [facility] Disclaimer: The information contained in this section may have been updated after the patient was seen, as this information can be updated by other users. Medical History (Updated 07/15/25 @ 21:00 by Hank Fatima MD) Asthma History of smoking 10-25 pack years Multiple lung nodules on CT Family History Mother Cancer Social History Smoking Status: Never smoker alcohol intake: never substance use type: denies use current occupational status: employed Travel in the last 8 weeks?: Inside the [place] Have you lived/traveled outside US in past 30 days?: No Contact w/someone who lives/traveled outside US past 30 days?: No Exposure to someone with infectious disease in past 14 days?: No Do you have a fever (greater than 100.4 F or 38 C)?: No Have you tested positive for COVID-19?: No Exposed to someone with COVID-19 in past 14 days?: No Do you have a sore throat?: No Do you have a cough?: No Do you have any weakness?: No Do you have any diarrhea?: No Are you experiencing any unusual bleeding?: No Do you have any muscle aches/pain?: No Do you have any abdominal pain?: No Are you experiencing loss of taste or smell?: No ROS Obtained: Yes Systems reviewed as appropriate & no additional complaints except as documented Physical Exam General General appearance: alert and in no apparent distress Head Head exam: atraumatic Eye Eye exam: Present normal appearance ENT ENT exam: Present normal external ear exam Neck Neck exam: Present full ROM Chest Chest inspection: Present symmetric chest wall rise Respiratory Respiratory exam: Present normal lung sounds bilaterally; Absent respiratory distress Cardiovascular Cardiovascular exam: Present regular rate and normal rhythm Abdominal Exam Abdominal exam: Present soft; Absent tenderness or guarding exam: Present deferred Extremities Exam Extremities exam: Present normal inspection Back Exam Back exam: Present normal inspection Neurological Exam Neurological exam: Present alert and oriented X3 Psychiatric Psychiatric exam: Present normal affect Skin Skin exam: Present warm and dry HEART Score HEART Score HEART Score assessment performed?: Yes History (anamnesis): Moderately suspicious ECG: Normal Age: 45-65 years Risk factors: 1-2 risk factors Troponin: </= normal limit HEART Score: 3 Critical Care Critical Care Time Critical Care Time: No Medical Decision Making Tip Inquiry Pt receiving controlled substance: No Vital Signs Vital Signs: 07/15/25 18:58 07/15/25 20:09 Temperature 98.2 F Temperature Source Oral Pulse Rate 64 Pulse Rate [Right Radial] 65 Respiratory Rate 18 12 Blood Pressure 140/85 Blood Pressure [Right Arm] 151/79 H Blood Pressure Mean [Right Arm] 103 Blood Pressure Source [Right Arm] Automatic Cuff Blood Pressure Position [Right Arm] Sitting 02 Sat by Pulse Oximetry 100 97 Oxygen Delivery Method Room Air Lab Data Labs: Lab Results 07/15/25 19:20: WBC 7.2, RBC 5.15, Hgb 14.8, Hct 44.0, MCV 85.4, MCH 28.7, MCHC 33.6, RDW 12.9, Plt Count 210, MPV 11.0 H, Neut % (Auto) 64.5, Lymph % (Auto) 23.5, [place] % (Auto) 8.9, Eos % (Auto) 1.9, Baso % (Auto) 0.8, Neut # (Auto) 4.6, Lymph # (Auto) 1.7, [place] # (Auto) 0.6, Eos # (Auto) 0.1, Baso # (Auto) 0.1, Sodium 136, Potassium 4.2, Chloride 102, Carbon Dioxide 26, Anion Gap 12.2, BUN 27 H, Creatinine 1.20, Estimated Creat Clear 84, Estimated GFR 62, Est GFR ( Amer) 75, Glucose 102 H, Calcium 9.4, Total Bilirubin 0.5, AST 39, ALT 26, Alkaline Phosphatase 110, Troponin I < 0.01, NT-Pro-B Natriuret Pep 28.8, Total Protein 7.8, Albumin 4.0, Globulin 3.8 H, Albumin/Globulin Ratio 1.1 07/15/25 19:20 07/15/25 19:20 Response Orders (Tests/Meds): ORDERS Category Date Time Status CXR --portable [XR chest portable] Stat Exams 07/15/25 19:31 Completed BNP [NT Pro Brain Natriuretic Pep.] Stat Lab 07/15/25 19:20 Completed CBC w/Auto Diff [Complete Blood Count Auto Diff] Stat Lab 07/15/25 19:20 Completed CMP [Comprehensive Metabolic Panel] Stat Lab 07/15/25 19:20 Completed Troponin I Q3H Lab 07/15/25 22:45 Ordered Troponin I Q3H Lab 07/16/25 01:45 Ordered Troponin I Stat Lab 07/15/25 19:20 Completed EKG Request [ECG Request] Stat Y 07/15/25 19:31 Ordered ECG Data Tracing #1: Attestation: I reviewed this ECG and interpreted as documented below: ECG Narrative: Normal sinus rhythm. No ST elevation or depression. QTc of 380 MDM Narrative Medical Decision Narrative: Shadi Laird is a 59y male with a past medical history of previous tobacco use, lung nodules who presents to the emergency department for 2 weeks of progressively worsening shortness of breath and chest pain. Patient states that with exertion, such as walking up a hill or working, he will develop pains in the middle of his chest that spreads out throughout both chest and into both biceps. He does report some shortness of breath with this as well. He states that at rest, the pain seems to improve. He was seen in the emergency department 1 week ago and was told he has lung nodules/granulomas and possible sarcoidosis versus histoplasmosis and was sent to pulmonology here with histoplasmosis and sarcoidosis workup pending. He states that today, the pain seems to be worse with exertion but is currently pain-free. He states that he does not have any history of heart disease that he is aware of. He reports a remote history of drug abuse but denies any currently. He denies any fevers or cough or abdominal pain or nausea or vomiting. Patient states that he has an appointment with his workers compensation claims examiner tomorrow. Patient does state that he has a history of hypertension but that his blood pressure was elevated to 170s systolic today and that is abnormal for him. On arrival, patient's initial blood pressure was 151/79 but improved to 140/85 without intervention. Heart rate within normal limits. Afebrile. Oxygen saturation 100% on room air. Physical exam, stated above, revealed an overall well-appearing male in no distress. Cardiopulmonary exam without murmurs or rubs. No wheezing, rales or rhonchi. Abdomen is soft, nontender nondistended. Differential diagnosis includes, but is not limited to: ACS, angina, pericarditis, pleural effusion, pneumothorax, pulmonary embolism, aortic dissection, pneumonia, among others. The most morbid conditions were considered and workup was based on these. Chart review shows that patient had a CT of the chest on 07/04 that showed no evidence of pulmonary embolism or aortic dissection. Given patient is PERC negative here today, I do not see the utility in obtaining repeat CT imaging or D-dimer at this time. Will obtain chest x-ray, EKG, troponin, BNP, CBC with differential, CMP. EKG interpreted by me personally. No evidence of ischemia. See interpretation above Patient's workup is grossly unremarkable and nonactionable. No leukocytosis, no anemia, platelets within normal limits. Electrolytes within normal limits. No GAUTAM. Troponin less than 0.01. Liver enzymes and bili within normal limits. Chest x-ray interpreted by me personally. No focal consolidation, no pneumothorax, no widened mediastinum, no enlargement of the cardiac silhouette. Unremarkable chest x-ray. There is redemonstration of calcified granuloma to the right mid upper lung field. See radiology report for details. On reassessment, patient remained asymptomatic and hemodynamically stable. I do feel the patient symptomatology could be explained by stable angina versus lung pathology, which are both being worked up appropriately. Patient has very close follow-up at 8:30 in the morning with cardiology and I do feel that he is appropriate for discharge at this time given his close follow-up. Patient may need tighter blood pressure control, which can be arranged by workers compensation claims examiner or PCP. I discussed this with patient and and they are in agreement with this plan. All questions were answered. Patient was then discharged from the emergency department in stable condition.
[2025-07-15 19:41] LABS: Hematocrit 44.0 % (42.0-52.0); Hemoglobin 14.8 g/dL (14.1-18.0); Immature Granulocytes % 0.4 %; Mean Corpuscular HGB Conc 33.6 g/dL (31.8-35.4); Mean Corpuscular Hemoglobin 28.7 pg (27.0-31.2); Mean Corpuscular Volume 85.4 fl (80-94); Nucleated Red Blood Cells % 0 %; Platelet Count 210 K/mm3 (142-424); Red Blood Count 5.15 M/mm3 (4.60-6.20); Red Cell Distribution Width-SD 40.5 fL; White Blood Count 7.2 K/mm3 (4.8-10.8)
[2025-07-15 19:43] LABS: Alanine Aminotransferase 26 U/L (12-78); Albumin Level 4.0 g/dl (3.5-5.0); Albumin/Globulin Ratio 1.1 (1.1-1.8); Alkaline Phosphatase 110 U/L (38-126); Anion Gap 12.2 mEq/L (5-15); Aspartate Amino Transferase 39 U/L (17-59); Bilirubin,Total 0.5 mg/dl (0.2-1.3); Blood Urea Nitrogen 27 mg/dl (9-20); Calcium 9.4 mg/dl (8.4-10.2); Carbon Dioxide 26 mmol/L (22.0-30.0); Chloride 102 mmol/L (98-107); Creatinine Clearance Estimated 84 mL/min (50-200); Creatinine,Serum 1.20 mg/dl (0.66-1.25); Estimated Glomerular Filt Rate 62 ml/min (>60); GFR (African American) 75 ML/MIN (>60); Globulin 3.8 g/dL (1.3-3.2); Glucose 102 mg/dl (74-100); Potassium 4.2 mmoL/L (3.5-5.1); Sodium 136 mmol/L (136-145); Total Protein,Serum 7.8 g/dl (6.3-8.2)
[2025-07-15 19:54] LABS: NT Pro Brain Natriuretic Pep. 28.8 pg/mL (0-125)
[2025-07-15 19:59] LABS: Troponin I < 0.01 ng/ml (0.00-0.034)
[2025-07-15 20:09] VITALS: BP 140/85; PULSE 64; RESP 12; O2SAT 97
[2025-07-15 21:01] VITALS: BP 134/84; PULSE 62; RESP 8; TEMP 36.8; O2SAT 96
== END 2025-07-15 21:09 | disposition home or self-care (01) ==
PROVIDERS: Emergency Provider Student in an Organized Health Care Education/Training Program
DX: R07.9 Chest pain, unspecified (principal); R06.02 Shortness of breath; I10 Essential (primary) hypertension
CPT/HCPCS: 71045; 80053; 83880; 84484; 85025; 93005; 99284; 99285

== ENCOUNTER 2025-07-20 07:23 | Outpatient (CLI) | payer BC, SELFPAY ==
--- OUTSIDE RECORDS SUMMARY | 2025-07-20 07:26 | XMS_ITS | Clinical Summary ---
Author Organization Healthcare Address [address] [place] [address] Care Team Providers Care Aircraft Log Clerk Name Role Phone Pcp, No Primary Care [...] place to sleep or slept in a usp (including now)? No 06/01/2024 Utilities Answer Date [...] - Risk 60-74 years 1-dose series) 2024 [id number] Vaccine ( - 2024- season) 2025 07/06/2021, [...] Patient has decision-making capacity? Yes Care Teams Aircraft Log Clerk Relationship Specialty Start Date End Date Pcp, No [address] [place] [address] PCP - General Family Medicine 10/19/23
--- OUTSIDE RECORDS SUMMARY | 2025-07-20 07:26 | XMS_ITS | Clinical Summary ---
[facility] Organization [facility] Address [address] [place] [address] Care Team Providers Care Glue Mounter Operator Name Role Phone Unavailable Primary Care [...] - 09/18/2017 6:14 AM EST Performed at: [address] [id number] [place] Specialist: Efra Callahan MD, Phone: [phone] [place] APRN LAB BLOOD ORDERABLES Final Result Performing Organization Address [facility]/State/[facility] Co de Phone Number [facility] [address] [place] [address], from Last 3 Months or Most Recently Relevant to Health Maintenance [facility]
--- OUTSIDE RECORDS SUMMARY | 2025-07-20 07:26 | XMS_ITS | Data Portability ---
Author Organization [employer] [facility] - MSE Address [address] [place] [address] Assessment Encounter Date Assessment Date Assessment LastModified [...] Lab CMP, serum or plasma 2022 023 [email or web address] [facility], [address], [place], [address], 3 05:40:29 CBC w/ auto diff 2022 023 [email or web address] [facility], [address], [place], [address], 3 05:40:30 HbA1c (hemoglobin A1c), blood 2022 023 WERNER [facility], [address] [place] [address], [place], [address], 3 10:13:33 TSH, serum or plasma 2022 023 [place] [employer] [facility], [address], [place], [address], 3 05:40:31 lipid panel, serum 2022 023 [email or web address], [address], [place], [address], 4 16:55:54 Referral None recorded. Procedures None recorded. Surgeries None recorded. Imaging CT, head, w/o contrast 2022 023 [facility] (Scheduling), [address], [place], [address], 3 09:16:30 Medication Orders sumatriptan 50 mg tablet 2022 023 [facility], [facility] [place], [address], 3 08:58:34 lisinopril 10 mg tablet 2022 023 [facility], [address] [place] [address], [address], 3 08:58:36 Patient TargetsNo targets recorded. Patient InstructionsNo instructions recorded. Reason for Referral None Reported. Results Created Date Observation Date Name Description Value Unit Range Abnormal Flag Note LastModifiedBy Organization Detail LastModifiedTime 05/19/2005/20/2023 COMPR EHENS NESSA METAB OLIC PANEL glucose 82 mg/dL 65-99 normal Fasti ng refer ence inter rosa Not Available [facility] [address] [facility], [place], [address], 05/20/2023 07:27:09 05/19/20 23 05/20/2023 COMPR EHENS NESSA METAB OLIC PANEL urea nitrogen (BUN) 25 mg/dL 7-25 normal Not Available [facility] [address] [facility] [place], [address], 05/20/2023 07:27:09 05/19/20 23 05/20/2023 COMPR EHENS NESSA METAB OLIC PANEL creatinine 1.10 mg/dL 0.70-1 .30 normal Not Available [facility] [address] [facility] [place], [address], 05/20/2023 07:27:09 05/19/20 23 05/20/2023 COMPR EHENS NESSA METAB OLIC PANEL eGFR 78 mL/mi n/1.7 3m2 > or = 60 normal Not Available [facility] [address] [facility] [place], [address], 05/20/2023 07:27:09 05/19/20 23 05/20/2023 COMPR EHENS NESSA METAB OLIC PANEL BUN/creatini ne ratio SEE NOTE: (calc ) 6-22 Not Repor prasanna: BUN and Creat inine are withi n refer ence range . Not Available [facility] [address] [facility] [place], [address], 05/20/2023 07:27:09 05/19/20 23 05/20/2023 COMPR EHENS NESSA METAB OLIC PANEL sodium 140 mmol/ L 135-14 6 normal Not Available [facility] [address] [facility] [place], [address], 05/20/2023 07:27:09 05/19/20 23 05/20/2023 COMPR EHENS NESSA METAB OLIC PANEL potassium 4.7 mmol/ L 3.5-5. 3 normal Not Available [facility] [address] [facility] [place], [address], 05/20/2023 07:27:09 05/19/20 23 05/20/2023 COMPR EHENS NESSA METAB OLIC PANEL chloride 106 mmol/ L 98-110 normal Not Available [facility] [address] [place], [address], 05/20/2023 07:27:09 05/19/20 23 05/20/2023 COMPR EHENS NESSA METAB OLIC PANEL carbon dioxide 26 mmol/ L 20-32 normal Not Available [facility] [address] [facility] [place], [address], 05/20/2023 07:27:09 05/19/20 23 05/20/2023 COMPR EHENS NESSA METAB OLIC PANEL calcium 9.9 mg/dL 8.6-10 .3 normal Not Available [facility] [address] [place], [address], 05/20/2023 07:27:09 05/19/20 23 05/20/2023 COMPR EHENS NESSA METAB OLIC PANEL protein, total 7.0 g/dL 6.1-8. 1 normal Not Available [facility] [address] [facility] [place], [address], 05/20/2023 07:27:09 05/19/20 23 05/20/2023 COMPR EHENS NESSA METAB OLIC PANEL albumin 4.5 g/dL 3.6-5. 1 normal Not Available [facility] [address] [facility] [place], [address], 05/20/2023 07:27:09 05/19/20 23 05/20/2023 COMPR EHENS NESSA METAB OLIC PANEL globulin 2.5 g/dL_ (calc ) 1.9-3. 7 normal Not Available [facility] [address] [place], [address], 05/20/2023 07:27:09 05/19/20 23 05/20/2023 COMPR EHENS NESSA METAB OLIC PANEL albumin/glob ulin ratio 1.8 (calc ) 1.0-2. 5 normal Not Available [employer] [facility] [address] [place], [address], 05/20/2023 07:27:09 05/19/20 23 05/20/2023 COMPR EHENS NESSA METAB OLIC PANEL bilirubin, total 0.6 mg/dL 0.2-1. 2 normal Not Available [facility] [employer] [facility] [address] [place], [address], 05/20/2023 07:27:09 05/19/20 23 05/20/2023 COMPR EHENS NESSA METAB OLIC PANEL alkaline phosphatase 86 U/L 35-144 normal Not Available [facility] [address] [place], [address], 05/20/2023 07:27:09 05/19/20 23 05/20/2023 COMPR EHENS NESSA METAB OLIC PANEL AST 20 U/L 10-35 normal Not Available [facility] [employer] [facility] [address] [place], [address], 05/20/2023 07:27:09 05/19/20 23 05/20/2023 COMPR EHENS NESSA METAB OLIC PANEL ALT 27 U/L 9-46 normal Not Available [employer] [facility] [address] [place], [address], 05/20/2023 07:27:09 05/19/20 23 05/20/2023 CBC (INCL UDES DIFF/ PLT) white blood cell count 8.2 thous and/u L 3.8-10 .8 normal Not Available [employer] [facility] [address] [place], [address], 05/20/2023 05:40:30 05/19/20 23 05/20/2023 CBC (INCL UDES DIFF/ PLT) red blood cell count 5.38 duane on/uL 4.20-5 .80 normal Not Available [employer] [facility] [address] [place], [address], 05/20/2023 05:40:30 05/19/2005/20/2023 CBC (INCL UDES DIFF/ PLT) hemoglobin 15.3 g/dL 13.2-1 7.1 normal Not Available [facility] [address] [facility] [place], [address], 05/20/2023 05:40:30 05/19/2005/20/2023 CBC (INCL UDES DIFF/ PLT) hematocrit 46.7 % 38.5-5 0.0 normal Not Available [facility] [address] [facility] [place], [address], 05/20/2023 05:40:30 05/19/2005/20/2023 CBC (INCL UDES DIFF/ PLT) MCV 86.8 fL 80.0-1 00.0 normal Not Available [facility] [address] [facility] [place], [address], 05/20/2023 05:40:30 05/19/2005/20/2023 CBC (INCL UDES DIFF/ PLT) MCH 28.4 pg 27.0-3 3.0 normal Not Available [facility] [place], [address], 05/20/2023 05:40:30 05/19/2005/20/2023 CBC (INCL UDES DIFF/ PLT) MCHC 32.8 g/dL 32.0-3 6.0 normal Not Available [facility] [address] [facility] [place], [address], 05/20/2023 05:40:30 05/19/2005/20/2023 CBC (INCL UDES DIFF/ PLT) RDW 13.4 % 11.0-1 5.0 normal Not Available [facility] [address] [place], [address], 05/20/2023 05:40:30 05/19/2005/20/2023 CBC (INCL UDES DIFF/ PLT) platelet count 236 thous and/u L 140-40 0 normal Not Available [facility] [address] [place], [address], 05/20/2023 05:40:30 05/19/2005/20/2023 CBC (INCL UDES DIFF/ PLT) MPV 11.1 fL 7.5-12 .5 normal Not Available [facility] [address] [place], [address], 05/20/2023 05:40:30 05/19/2005/20/2023 CBC (INCL UDES DIFF/ PLT) absolute neutrophils 5978 cells /uL 1500-7 800 normal Not Available [facility] [address], [place], [address], 05/20/2023 05:40:30 05/19/2005/20/2023 CBC (INCL UDES DIFF/ PLT) absolute lymphocytes 1402 cells /uL 850-39 00 normal Not Available [facility] [address], [place], [address], 05/20/2023 05:40:30 05/19/2005/20/2023 CBC (INCL UDES DIFF/ PLT) absolute monocytes 640 cells /uL 200-95 0 normal Not Available [facility] [address], [place], [address], 05/20/2023 05:40:30 05/19/2005/20/2023 CBC (INCL UDES DIFF/ PLT) absolute eosinophils 131 cells /uL 15-500 normal Not Available [facility] [address], [place], [address], 05/20/2023 05:40:30 05/19/2005/20/2023 CBC (INCL UDES DIFF/ PLT) absolute basophils 49 cells /uL 0-200 normal Not Available [facility] [address] [place], [address], 05/20/2023 05:40:30 05/19/2005/20/2023 CBC (INCL UDES DIFF/ PLT) neutrophils 72.9 % normal Not Available [facility] [address] [facility] [place], [address], 05/20/2023 05:40:30 05/19/2005/20/2023 CBC (INCL UDES DIFF/ PLT) lymphocytes 17.1 % normal Not Available [facility] [address] [facility] [place], [address], 05/20/2023 05:40:30 05/19/2005/20/2023 CBC (INCL UDES DIFF/ PLT) monocytes 7.8 % normal Not Available [facility] [address] [facility] [place], [address], 05/20/2023 05:40:30 05/19/2005/20/2023 CBC (INCL UDES DIFF/ PLT) eosinophils 1.6 % normal Not Available [facility] [address] [facility] [place], [address], 05/20/2023 05:40:30 05/19/2005/20/2023 CBC (INCL UDES DIFF/ PLT) basophils 0.6 % normal Not Available [facility] [address] [facility] [place], [address], 05/20/2023 05:40:30 05/19/2005/20/2023 TSH W/REF CIELO TO FT4 TSH w/reflex to FT4 2.34 mIU/L 0.40-4 .50 normal Not Available [facility] [address] [facility], [place], [address], 05/20/2023 10:08:46 05/19/20 23 05/19/2023 HbA1c (hemo globi n A1c), blood HbA1c 6.0 Not Available [address], [place], [address], 05/19/2023 08:48:34 05/19/20 23 05/19/2023 elect rocar diogr am No observ ation record ed. [address], [address], 05/19/2023 10:14:20 05/19/20 elect rocar diogr am No observ ation record ed. [email or web address] Not Available 02/2023 09:35:49 05/20/20 23 05/19/2023 CT, head, w/o contr ast No observ ation record ed. [email or web address] [facility] [address], [place], [address], 05/20/2023 10:38:15 Result Notes None recorded. Problems Name Problem SNOMED Code Status Onset Date Resolution Date Notes Provider Name and Address Organization Details Recorded Time Chest pain 03030939 Active [address], [address], [facility] [employer] 3 08:11:51 Migraine 82040825 Active 2022 CHRISTY LEIJAWHITLEY [address] [place] [address], [address], [facility] [employer] 3 08:35:38 Essential hypertension 18688883 Active [address], [address], [facility] [employer] 3 08:47:21 Fluttering heart 295891292 Active [address], [address], [employer] 10:59:16 Problem Notes None recorded. Procedures Surgical History Date Name Laterality Status Provider Name and Address Organization Details Recorded Time Colonoscopy completed BLADIMIR PERALTA [employer] 05/19/2023 07:59:35 Imaging Results None recorded. [...] Last Updated DateTime 05/19/2023 148/82 mm[Hg] LIVE QUINTEROSMICK[address], [address], [employer] 05/19/2023 09:33:00 Date Recorded Body weight Body mass index (BMI) Body height Heart rate Oxygen saturation Oxygen saturation in Arterial blood by Pulse oximetry Systolic And Diastolic Provider Name and Address Organization Details Last Updated DateTime 3 00025.6 9 g 26.9 kg/m2 182.88 cm 62 /min 96 % 96 % 136/83 mm[Hg] BLADIMIR PERALTA [employer] 08:07:45 Social History Question Answer Notes LastModified by Organizat ion Details LastModified Time Tobacco Smoking Status Former Smoker BLADIMIRNOAH chino, [facility] [employer] 05/19/2023 07:59:17 Do You Have An Advance Directive? No [email or web address] Information not available 05/19/2023 Is Your Home Air Conditioned? Yes [email or web address] Information not available 05/19/2023 Do You Wear A Helmet When Biking? No [email or web address] Information not available 05/19/2023 Are You Blind Or Do You Have Difficulty Seeing? No [email or web address] Information not available 05/19/2023 What Is Your Level Of Caffeine Consumption? Occasional [email or web address] Information not available 05/19/2023 Are You A Caregiver? No Information not available 05/19/2023 Have You Been To An Area Known To Be High Risk For COVID-19? No [email or web address] Information not available 05/19/2023 Are You Deaf Or Do You Have Serious Difficulty Hearing? No [email or web address] Information not available 05/19/2023 What Type Of Diet Are You Following? REGULAR [email or web address] Information not available 05/19/2023 Who Is Your Employer? Self Employed [email or web address] Information not available 05/19/2023 How Many Days Of Moderate To Strenuous Exercise, Like A Brisk Walk, Did You Do In The Last 7 Days? 2 [email or web address] Information not available 05/19/2023 Have There Been Any Changes To Your Family Or Social Situation? No Information no t available 05/19/2023 When Did You Quit Smoking? 16+yearssincel mark [email or web address] Information not available 05/19/2023 Are There Any Guns Present In Your Home? No [email or web address] Information not available 05/19/2023 Which Of Your Hands Is Dominant? Right [email or web address] Information not available 05/19/2023 Do You Have A Medical Power Of Receptionist Nurse? No [email or web address] Information not available 05/19/2023 What Was The Date Of Your Most Recent Tobacco Screening? 05/19/2023 [email or web address] Information not available 05/19/2023 Are There Any Occupational Health Risks Where You Work? No [email or web address] Information not available 05/19/2023 What Is Your Current Pack Years? 30ormorepackye ars [email or web address] Information not available 05/19/2023 Do You Have Any Pets? Yes [email or web address] Information not available 05/19/2023 Do You Use Protection During Sex? No [email or web address] Information not available 05/19/2023 What Is Your Relationship Status? [email or web address] Information not available 05/19/2023 Have You Repeated Any Grades? No [email or web address] Information not available 05/19/2023 Do You Use Your Seat Belt Or Car Seat Routinely? Yes [email or web address] Information not available 05/19/2023 Are You Sexually Active? Yes Information not available 05/19/2023 Do You Have Any Siblings? Sister [email or web address] Information not available 05/19/2023 Do You Have Smoke And Carbon Monoxide Detectors In Your Home? Yes [email or web address] Information not available 05/19/2023 At What Age Did You Start Smoking Tobacco? 11 [email or web address] Information not available 05/19/2023 Are You Passively Exposed To Smoke? Yes [email or web address] Information no t available 05/19/2023 Are There Any Smokers In Your House? Yes [email or web address] Information not available 05/19/2023 How Much Tobacco Do You Smoke? 2 PPD [email or web address] Information not available 05/19/2023 Do You Use Sunscreen Routinely? No [email or web address] Information not available 05/19/2023 How Many Years Have You Smoked Tobacco? 30 Information not available 05/19/2023 Have You Recently Traveled Abroad? No [email or web address] Information not available 05/19/2023 Do You Have Difficulty Walking Or Climbing Stairs? No [email or web address] Information not available 05/19/2023 Do You Have Any Dietary Restrictions? No [email or web address] Information not available 05/19/2023 Sex: Male Functional Status Question Answer Note LastModified by Organizat ion Details LastModified Time Do you use any illicit or recreational drugs? No [email or web address] Information not available 05/19/2023 Do you or have you ever used any other forms of tobacco or nicotine? No [email or web address] Information not available 05/19/2023 What is your level of alcohol consumption? None Information not available 05/19/2023 Are you currently employed? Yes [email or web address] Information not available 05/19/2023 Do you have transportation difficulties? No [email or web address] Information not available 05/19/2023 Are you able to walk independently without assistance or assistive devices? [employer]OREST [email or web address] Information not available 05/19/2023 Do you have difficulty doing errands alone? No [email or web address] Information not available 05/19/2023 Are you able to care for yourself independently? Yes [email or web address] Information not available 05/19/2023 Do you have difficulty dressing, bathing, grooming, or toileting? No [email or web address] Information not available 05/19/2023 What is your exercise level? Occasional [email or web address] Information not available 05/19/2023 Mental Status Question Answer Note LastModified by Organization D etails LastModified Time Do you have difficulty concentrating, remembering or making decisions? No [email or web address] Information no t available 05/19/2023 Are you or have you been involved with bullying? No [email or web address] Information not available 05/19/2023 Family History Relationship Description Onset Age of this Age Resolved Age Notes LastModified by Organization Details LastModified Time Mother Depressive disorder Not available 02/2023 07:59:17 Mother Malignant neoplasm of lung [email or web address] Not available 02/2023 07:59:17 Maternal Grandmother Malignant neoplasm of lung [email or web address] Not available 02/2023 07:59:17 Medical History Condition Response Hospitalizations N Hepatitis Y Emergency room visit since last appointm ent. N Arthritis Y Headaches Y Past Encounters Encounter ID Performer Location Encounter Start Date Encounter Closed Date Diagnosis/Indication Diagnosis SNOMED-CT Code Diagnosis ICD10 Code Diagnosis IMO Codes Diagnosis Note [id number] LIVE QUINTEROS, [address] [address] 05/19/2023 07:50:43 05/19/2023 09:08:59 Migraine 17648512 G43.909 Essential hypertension 34377705 I10 Health Concerns Section Related Observation LastModified [...] mother's side of the family. LIVE QUINTEROS, [employer]OL[employer] [address] [place], [address], [facility] [employer] 05/19/2023 09:38:55
[2025-07-20 08:00] VITALS: BMI 27.8
[2025-07-20 08:04] VITALS: BP 111/68; PULSE 47; RESP 16; TEMP 36.4; O2SAT 97
[2025-07-20 09:12] VITALS: BP 111/63; PULSE 47; RESP 17; O2SAT 100
[2025-07-20 09:15] VITALS: BP 104/60; PULSE 50; RESP 17; O2SAT 100
== END 2025-07-20 09:20 | disposition home or self-care (01) ==
PROVIDERS: Visit Provider Nurse Practitioner Family
DX: R07.9 Chest pain, unspecified (principal); I10 Essential (primary) hypertension
CPT/HCPCS: 75574

== ENCOUNTER 2025-07-25 12:36 | Outpatient (CLI) | payer BC, SELFPAY ==
--- OUTSIDE RECORDS SUMMARY | 2025-07-25 12:41 | XMS_ITS | Data Portability ---
Author Organization [employer] Address [address] [place] [address] Assessment Encounter Date Assessment Date Assessment LastModified [...] to go to the emergency department immediately. [email or web address] Not available 05/19/2023 09:37:20 Plan of Treatment Reminders Order Date Submit Date Provider Last Modified By Organization Details Last Modified Time Details Appointments None recorded. Lab CMP, serum or plasma 2022 023 [employer], [address], [place], [address], 3 05:40:29 CBC w/ auto diff 2022 023 [employer], [address], [place], [address], 3 05:40:30 HbA1c (hemoglobin A1c), blood 2022 023 WERNER Ming [facility], [address] [place] [address], [place], [address], 3 10:13:33 TSH, serum or plasma 2022 023 GARRISON [employer] [facility], [address], [place], [address], 3 05:40:31 lipid panel, serum 2022 023 [email or web address], [address], [place], [address], 4 16:55:54 Referral None recorded. Procedures None recorded. Surgeries None recorded. Imaging CT, head, w/o contrast 2022 023 [facility] (Scheduling), [address], [place], [address], 3 09:16:30 Medication Orders sumatriptan 50 mg tablet 2022 023 [facility], [facility] [place], [address], 3 08:58:34 lisinopril 10 mg tablet 2022 023 [facility], [address] [place] [address], [address], 3 08:58:36 Patient TargetsNo targets recorded. Patient InstructionsNo instructions recorded. Reason for Referral None Reported. Results Created Date Observation Date Name Description Value Unit Range Abnormal Flag Note LastModifiedBy Organization Detail LastModifiedTime 05/19/2005/20/2023 COMPR EHENS NESSA METAB OLIC PANEL glucose 82 mg/dL 65-99 normal Fasti ng refer ence inter rosa Not Available [email or web address] [address] [facility], [place], [address], 05/20/2023 07:27:09 05/19/20 23 05/20/2023 COMPR EHENS NESSA METAB OLIC PANEL urea nitrogen (BUN) 25 mg/dL 7-25 normal Not Available [facility] [address] [facility] [place], [address], 05/20/2023 07:27:09 05/19/20 23 05/20/2023 COMPR EHENS NESSA METAB OLIC PANEL creatinine 1.10 mg/dL 0.70-1 .[address] [facility] [address] [facility] [place], [address], 05/20/2023 07:27:09 05/19/20 23 05/20/2023 COMPR EHENS NESSA METAB OLIC PANEL eGFR 78 mL/mi n/1.7 3m2 > or = 60 normal Not Available [facility] [address] [facility] [place], [address], 05/20/2023 07:27:09 05/19/20 23 05/20/2023 COMPR EHENS NESSA METAB OLIC PANEL BUN/creatini ne ratio SEE NOTE: (calc ) 6-22 Not Repor prasanna: BUN and Creat inine are withi n refer ence range . Not Available [facility] [address] [facility] [place], [address], 05/20/2023 07:27:09 05/19/20 23 05/20/2023 COMPR EHENS NESSA METAB OLIC PANEL sodium 140 mmol/ L 135-14 [address] Not [address] [facility] [address] [facility] [place], [address], 05/20/2023 07:27:09 05/19/20 23 05/20/2023 COMPR EHENS NESSA METAB OLIC PANEL potassium 4.7 mmol/ L 3.5-5. 3 normal Not Available [email or web address] [address] [facility] [place], [address], 05/20/2023 07:27:09 05/19/20 23 05/20/2023 COMPR EHENS NESSA METAB OLIC PANEL chloride 106 mmol/ L 98-110 normal Not Available [facility] [address] [place], [address], 05/20/2023 07:27:09 05/19/20 23 05/20/2023 COMPR EHENS NESSA METAB OLIC PANEL carbon dioxide 26 mmol/ L 20-32 normal Not Available [facility] [address] [place], [address], 05/20/2023 07:27:09 05/19/20 23 05/20/2023 COMPR EHENS NESSA METAB OLIC PANEL calcium 9.9 mg/dL 8.6-10 .3 normal Not Available [facility] [address] [place], [address], 05/20/2023 07:27:09 05/19/20 23 05/20/2023 COMPR EHENS NESSA METAB OLIC PANEL protein, total 7.0 g/dL 6.1-8. 1 normal Not Available [facility] [address] [facility] [place], [address], 05/20/2023 07:27:09 05/19/20 23 05/20/2023 COMPR EHENS NESSA METAB OLIC PANEL albumin 4.5 g/dL 3.6-5. 1 normal Not Available [facility] [address] [place], [address], 05/20/2023 07:27:09 05/19/20 23 05/20/2023 COMPR EHENS NESSA METAB OLIC PANEL globulin 2.5 g/dL_ (calc ) 1.9-3. 7 normal Not Available [facility] [address] [place], [address], 05/20/2023 07:27:09 05/19/20 23 05/20/2023 COMPR EHENS NESSA METAB OLIC PANEL albumin/glob ulin ratio 1.8 (calc ) 1.0-2. 5 normal Not Available [facility] [address] [place], [address], 05/20/2023 07:27:09 05/19/20 23 05/20/2023 COMPR EHENS NESSA METAB OLIC PANEL bilirubin, total 0.6 mg/dL 0.2-1. [address] [facility] [employer] [facility] [address] [place], [address], 05/20/2023 07:27:09 05/19/20 23 05/20/2023 COMPR EHENS NESSA METAB OLIC PANEL alkaline phosphatase 86 U/L 35-144 normal Not Available [facility] [employer] [facility] [address] [place], [address], 05/20/2023 07:27:09 05/19/20 23 05/20/2023 COMPR EHENS NESSA METAB OLIC PANEL AST 20 U/L 10-[address] [facility] [employer] [facility] [address] [place], [address], 05/20/2023 07:27:09 05/19/20 23 05/20/2023 COMPR EHENS NESSA METAB OLIC PANEL ALT 27 U/L 9-46 normal Not Available [facility] [address] [place], [address], 05/20/2023 07:27:09 05/19/20 23 05/20/2023 CBC (INCL UDES DIFF/ PLT) white blood cell count 8.2 thous and/u L 3.8-10 .8 normal Not Available [facility] [facility] [address] [place], [address], 05/20/2023 05:40:30 05/19/20 23 05/20/2023 CBC (INCL UDES DIFF/ PLT) red blood cell count 5.38 duane on/uL 4.20-5 .80 normal Not Available [facility] [address] [place], [address], 05/20/2023 05:40:30 05/19/2005/20/2023 CBC (INCL UDES DIFF/ PLT) hemoglobin 15.3 g/dL 13.2-1 7.1 normal Not Available [facility] [address] [facility] [place], [address], 05/20/2023 05:40:30 05/19/2005/20/2023 CBC (INCL UDES DIFF/ PLT) hematocrit 46.7 % 38.5-5 0.[address] [facility] [address] [facility] [place], [address], 05/20/2023 05:40:30 05/19/2005/20/2023 CBC (INCL UDES DIFF/ PLT) MCV 86.8 fL 80.0-1 00.0 normal Not Available [facility] [address] [facility] [place], [address], 05/20/2023 05:40:30 05/19/2005/20/2023 CBC (INCL UDES DIFF/ PLT) MCH 28.4 pg 27.0-3 3.0 normal Not Available [facility] [place], [address], 05/20/2023 05:40:30 05/19/2005/20/2023 CBC (INCL UDES DIFF/ PLT) MCHC 32.8 g/dL 32.0-3 6.0 normal Not Available [facility] [address] [facility] [place], [address], 05/20/2023 05:40:30 05/19/2005/20/2023 CBC (INCL UDES DIFF/ PLT) RDW 13.4 % 11.0-1 5.0 normal Not Available [facility] [address] [place], [address], 05/20/2023 05:40:30 05/19/2005/20/2023 CBC (INCL UDES DIFF/ PLT) platelet count 236 thous and/u L 140-40 0 normal Not Available [facility] [address] [place], [address], 05/20/2023 05:40:30 05/19/2005/20/2023 CBC (INCL UDES DIFF/ PLT) MPV 11.1 fL 7.5-12 .5 normal Not Available [facility] [address] [place], [address], 05/20/2023 05:40:30 05/19/2005/20/2023 CBC (INCL UDES DIFF/ PLT) absolute neutrophils 5978 cells /uL 1500-7 800 normal Not Available [facility] [address], [place], [address], 05/20/2023 05:40:30 05/19/2005/20/2023 CBC (INCL UDES DIFF/ PLT) absolute lymphocytes 1402 cells /uL 850-39 00 normal Not Available [facility] [address], [place], [address], 05/20/2023 05:40:30 05/19/2005/20/2023 CBC (INCL UDES DIFF/ PLT) absolute monocytes 640 cells /uL 200-95 0 normal Not Available [facility] [address], [place], [address], 05/20/2023 05:40:30 05/19/2005/20/2023 CBC (INCL UDES DIFF/ PLT) absolute eosinophils 131 cells /uL 15-500 normal Not Available [facility] [address], [place], [address], 05/20/2023 05:40:30 05/19/2005/20/2023 CBC (INCL UDES DIFF/ PLT) absolute basophils 49 cells /uL 0-200 normal Not Available [facility] [address] [place], [address], 05/20/2023 05:40:30 05/19/2005/20/2023 CBC (INCL UDES DIFF/ PLT) neutrophils 72.9 % normal Not Available [facility] [address] [facility] [place], [address], 05/20/2023 05:40:30 05/19/2005/20/2023 CBC (INCL UDES DIFF/ PLT) lymphocytes 17.1 % normal Not Available [facility] [address] [facility] [place], [address], 05/20/2023 05:40:30 05/19/2005/20/2023 CBC (INCL UDES DIFF/ PLT) monocytes 7.8 % normal Not Available [facility] [address] [facility] [place], [address], 05/20/2023 05:40:30 05/19/2005/20/2023 CBC (INCL UDES DIFF/ PLT) eosinophils 1.6 % normal Not Available [facility] [address] [facility] [place], [address], 05/20/2023 05:40:30 05/19/2005/20/2023 CBC (INCL UDES DIFF/ PLT) basophils 0.6 % normal Not Available [facility] [address] [facility] [place], [address], 05/20/2023 05:40:30 05/19/2005/20/2023 TSH W/REF CIELO TO FT4 TSH w/reflex to FT4 2.34 mIU/L 0.40-4 .50 normal Not Available [facility] [address] [facility], [place], [address], 05/20/2023 10:08:46 05/19/20 23 05/19/2023 HbA1c (hemo globi n A1c), blood HbA1c 6.0 Not Available [address], [place], [address], 05/19/2023 08:48:34 05/19/20 23 05/19/2023 elect rocar diogr am No observ ation record ed. [address], [address], 05/19/2023 10:14:20 05/19/20 elect rocar diogr am No observ ation record ed. [email or web address] Not Available 02/2023 09:35:49 05/20/20 23 05/19/2023 CT, head, w/o contr ast No observ ation record ed. [facility] [address], [place], [address], 05/20/2023 10:38:15 Result Notes None recorded. Problems Name Problem SNOMED Code Status Onset Date Resolution Date Notes Provider Name and Address Organization Details Recorded Time Chest pain 66570636 Active [address], [address], [employer] 3 08:11:51 Migraine 62636742 Active 2022 CHRISTY LEIJAWHITLEY [address] [place] [address], [address], [employer] 3 08:35:38 Essential hypertension 26080163 Active [address], [address], [facility] [employer] 3 08:47:21 Fluttering heart 524760314 Active [address], [address], [employer] 10:59:16 Problem Notes None recorded. Procedures Surgical History Date Name Laterality Status Provider Name and Address Organization Details Recorded Time Colonoscopy completed BLADIMIR PERALTA [employer] 05/19/2023 07:59:35 Imaging Results None recorded. [...] Last Updated DateTime 05/19/2023 148/82 mm[Hg] LIVE QUINTEROS[address]ICK[address], [address], [employer] 05/19/2023 09:33:00 Date Recorded Body weight Body mass index (BMI) Body height Heart rate Oxygen saturation Oxygen saturation in Arterial blood by Pulse oximetry Systolic And Diastolic Provider Name and Address Organization Details Last Updated DateTime 3 [address].6 9 g 26.9 kg/m2 182.88 cm 62 /min 96 % 96 % 136/83 mm[Hg] BLADIMIR PERALTA [employer] 08:07:45 Social History Question Answer Notes LastModified by Organizat ion Details LastModified Time Tobacco Smoking Status Former Smoker BLADIMIRNOAH chino, [facility] [employer] 05/19/2023 07:59:17 Do You Have An Advance Directive? No [email or web address] Information not available 05/19/2023 Is Your Home Air Conditioned? Yes [email or web address] Information not available 05/19/2023 Do You Wear A Helmet When Biking? No [email or web address] Information not available 05/19/2023 Are You Blind Or Do You Have Difficulty Seeing? No [email or web address] Information not available 05/19/2023 What Is Your Level Of Caffeine Consumption? Occasional [email or web address] Information not available 05/19/2023 Are You A Caregiver? No [email or web address] Information not available 05/19/2023 Have You Been To An Area Known To Be High Risk For COVID-19? No Information not available 05/19/2023 Are You Deaf Or Do You Have Serious Difficulty Hearing? No [email or web address] Information not available 05/19/2023 What Type Of Diet Are You Following? REGULAR Information not available 05/19/2023 Who Is Your Employer? Self Employed [email or web address] Information not available 05/19/2023 How Many Days Of Moderate To Strenuous Exercise, Like A Brisk Walk, Did You Do In The Last 7 Days? 2 [email or web address] Information not available 05/19/2023 Have There Been Any Changes To Your Family Or Social Situation? No [email or web address] Information no t available 05/19/2023 When Did You Quit Smoking? 16+yearssincel mark [email or web address] Information not available 05/19/2023 Are There Any Guns Present In Your Home? No [email or web address] Information not available 05/19/2023 Which Of Your Hands Is Dominant? Right [email or web address] Information not available 05/19/2023 Do You Have A Medical Power Of Manager Security? No [email or web address] Information not available 05/19/2023 What Was The Date Of Your Most Recent Tobacco Screening? 05/19/2023 [email or web address] Information not available 05/19/2023 Are There Any Occupational Health Risks Where You Work? No [email or web address] Information not available 05/19/2023 What Is Your Current Pack Years? 30ormorepackye ars [email or web address] Information not available 05/19/2023 Do You Have Any Pets? Yes [email or web address] Information not available 05/19/2023 Do You Use Protection During Sex? No [email or web address] Information not available 05/19/2023 What Is Your Relationship Status? [email or web address] Information not available 05/19/2023 Have You Repeated Any Grades? No [email or web address] Information not available 05/19/2023 Do You Use Your Seat Belt Or Car Seat Routinely? Yes [email or web address] Information not available 05/19/2023 Are You Sexually Active? Yes [email or web address] Information not available 05/19/2023 Do You Have Any Siblings? Sister [email or web address] Information not available 05/19/2023 Do You Have Smoke And Carbon Monoxide Detectors In Your Home? Yes [email or web address] Information not available 05/19/2023 At What Age Did You Start Smoking Tobacco? 11 [email or web address] Information not available 05/19/2023 Are You Passively Exposed To Smoke? Yes [email or web address] Information no t available 05/19/2023 Are There Any Smokers In Your House? Yes [email or web address] Information not available 05/19/2023 How Much Tobacco Do You Smoke? 2 PPD [email or web address] Information not available 05/19/2023 Do You Use Sunscreen Routinely? No [email or web address] Information not available 05/19/2023 How Many Years Have You Smoked Tobacco? 30 [email or web address] Information not available 05/19/2023 Have You Recently Traveled Abroad? No [email or web address] Information not available 05/19/2023 Do You Have Difficulty Walking Or Climbing Stairs? No [email or web address] Information not available 05/19/2023 Do You Have Any Dietary Restrictions? No [email or web address] Information not available 05/19/2023 Sex: Male Functional Status Question Answer Note LastModified by Organizat ion Details LastModified Time Do you use any illicit or recreational drugs? No gkuztuidn645 Information not available 05/19/2023 Do you or have you ever used any other forms of tobacco or nicotine? No [email or web address] Information not available 05/19/2023 What is your level of alcohol consumption? None kfdemlszu450 Information not available 05/19/2023 Are you currently employed? Yes [email or web address] Information not available 05/19/2023 Do you have transportation difficulties? No [email or web address] Information not available 05/19/2023 Are you able to walk independently without assistance or assistive devices? YESWOREST [email or web address] Information not available 05/19/2023 Do you have difficulty doing errands alone? No [email or web address] Information not available 05/19/2023 Are you able to care for yourself independently? Yes [email or web address] Information not available 05/19/2023 Do you have difficulty dressing, bathing, grooming, or toileting? No [email or web address] Information not available 05/19/2023 What is your exercise level? Occasional lummizprb548 Information not available 05/19/2023 Mental Status Question Answer Note LastModified by Organization D etails LastModified Time Do you have difficulty concentrating, remembering or making decisions? No [email or web address] Information no t available 05/19/2023 Are you or have you been involved with bullying? No [email or web address] Information not available 05/19/2023 Family History Relationship Description Onset Age of this Age Resolved Age Notes LastModified by Organization Details LastModified Time Mother Depressive disorder [email or web address] Not available 02/2023 07:59:17 Mother Malignant neoplasm of lung [email or web address] Not available 02/2023 07:59:17 Maternal Grandmother Malignant neoplasm of lung [email or web address] Not available 02/2023 07:59:17 Medical History Condition Response Hospitalizations N Hepatitis Y Emergency room visit since last appointm ent. N Arthritis Y Headaches Y Past Encounters Encounter ID Performer Location Encounter Start Date Encounter Closed Date Diagnosis/Indication Diagnosis SNOMED-CT Code Diagnosis ICD10 Code Diagnosis IMO Codes Diagnosis Note [id number] LIVE QUINTEROS, [address] [address] 05/19/2023 07:50:43 05/19/2023 09:08:59 Migraine 26366179 G43.909 Essential hypertension 14260809 I10 Health Concerns Section Related Observation LastModified [...] mother's side of the family. LIVE QUINTEROS, ON SITE MANAGER-BC [address] [place], [address], [facility] [employer] 05/19/2023 09:38:55
--- OUTSIDE RECORDS SUMMARY | 2025-07-25 12:41 | XMS_ITS | Clinical Summary ---
Author Organization Healthcare Address [address] [place] [address] Care Team Providers Care Building Custodian Name Role Phone Pcp, No Primary Care [...] place to sleep or slept in a mcc (including now)? No 06/01/2024 Utilities Answer Date [...] - Risk 60-74 years 1-dose series) 2024 TTT-DYADH-12 Vaccine ( - 2024- season) 2025 07/06/2021, [...] Patient has decision-making capacity? Yes Care Teams Building Custodian Relationship Specialty Start Date End Date Pcp, No [address] [place] [address] PCP - General Family Medicine 10/19/23
--- OUTSIDE RECORDS SUMMARY | 2025-07-25 12:41 | XMS_ITS | Clinical Summary ---
[facility] Address [address] [place] [address] Care Team Providers Care Candy Department Manager Name Role Phone Unavailable Primary Care Provider [...] - 09/18/2017 6:14 AM EST Performed at: [address] [id number] Regional Director Of Admissions: Efra Callahan MD, Phone: [phone] [place] APRN LAB BLOOD ORDERABLES Final Result Performing Organization Address [facility]/State/[facility] Co de Phone Number [facility] [address] [place] [address], from Last 3 Months or Most Recently Relevant to Health Maintenance [facility]
--- NOTE | 2025-07-25 13:00 | CA_ITS ---
APPROVED REPORT EXAM: Comprehensive 2D, Doppler, and color-flow Echocardiogram Machinist Linotype: Janette Poe, SAVAGE, RVS Ht: 6 ft 0 in Wt: 203lbs BSA: 2.14 BP: 145/86 mmHg Indications: Cp, DONALDSON, Asthma, HTN Echo Enhancing Agent Comments: Lung impedance throughout exam. 2D Dimensions Left Atrium 3.04 cm M: 3.0 - 4.0 LA Volume 42.40 mL LA Volume Index 19.702373 mL/m2 (M/F) 16-34 M-Mode Dimensions RVDd 2.19 cm (0.9-2.6) LA Diam 3.41 cm (1.9-4.0) LVDd 4.77 cm (3.5-5.7) LVDs 3.16 cm (3.5-5.7) IVSd 0.97 cm (0.6-1.1) PWd 1.00 cm (0.6-1.1) EF (Teich) 62.50% EPSs 0.54 cm FS 33.80% EDV (Teich) 106.00 mL TAPSE 2.91 (<1.7) ESV (Teich) 39.70 mL LV Diastology E Decel Time 177 (160-240 msec) E/A Ratio 0.85 MED A' 11.40 cm/s LAT A' 14.80 cm/s Aortic Valve SKYLER Index 1.22 cm2/m2 AoV Peak Emigdio. 132.0 (50-130 cm/s) AO Peak GR. 7.00 mmHg AO Mean GR. 3.50 (<5 mmHg) AO VTI 28.0 (18-25 cm) SKYLER (VTI) 2.68 (2.5-4.5 cm2) Mitral Valve MV A Velocity 85.0 (40-130 cm/s) E/A Ratio 0.[address] End VMAX 161.0 cm/s Tricuspid Valve TR P. Velocity 211.00 cm/s RAP Estimate 10.00 mmHg RVSP 27.70 mmHg Left Ventricle The left ventricle is normal size. Left ventricular systolic function is normal. The left ventricular ejection fraction is within the normal range. There is normal left ventricular wall thickness. There is normal LV segmental wall motion. The left ventricular diastolic function is normal. LVEF is 60% Right Ventricle The right ventricle is normal size. The right ventricular systolic function is normal. Atria The left atrium size is normal. The right atrium size is normal. There is no color Doppler evidence of interatrial shunt. Aortic Valve The aortic valve opens well. There is no hemodynamically significant aortic valvular stenosis. No aortic regurgitation is present. Mitral Valve The mitral valve is normal in structure. No evidence of mitral valve stenosis. Mild mitral regurgitation is present. Tricuspid Valve The tricuspid valve leaflets are thin and pliable. Mild tricuspid regurgitation. RVSP is 20-25 mmHg. Pulmonic Valve The pulmonary valve is grossly normal in structure. Mild pulmonic valve regurgitation is present. Great Vessels The aortic root is normal in size. IVC is normal in size and collapses >50% with inspiration. Pericardium There is no pericardial effusion. Other Information Study Quality: Fair Conclusion Normal biventricular systolic function. No significant valvular stenosis or regurgitation. Electronically signed by : Beatriz Gonsalves MD 08/01/2025 21:43:57
== END 2025-07-25 23:59 | disposition home or self-care (01) ==
LOC: RT 12:36
PROVIDERS: Visit Provider Nurse Practitioner Family
DX: R07.9 Chest pain, unspecified (principal); I10 Essential (primary) hypertension; J45.909 Unspecified asthma, uncomplicated
CPT/HCPCS: 93306

== ENCOUNTER 2025-08-02 08:00 | Day surgery (SDC) | payer BC, SELFPAY ==
[2025-08-02] VITALS (12 sets, daily range): BP systolic 95–137; BP diastolic 48–75; PULSE 46–57; RESP 14–18; O2SAT 94–99; BMI 27.9
--- NOTE | 2025-08-02 07:00 | IR_ITS ---
APPROVED REPORT Patient Location: Outpatient Degree Clerk: Shadi Finn, RT (R) PROCEDURES Left heart catheterization Left ventriculogram Selective coronary angiogram Drug-eluting stent deployment to the proximal and mid LAD Drug-eluting stent deployment to the ostial proximal first diagonal artery Drug-eluting stent deployment to the ostial left main artery INDICATION Coronary artery disease, Angina pectoris, Abnormal Myoview Informed consent was obtained prior to the procedure. COMPLICATIONS NONE Estimated Blood Loss: LESS THAN 10 ML TECHNIQUE One percent lidocaine used to anesthetize the right anterior aspect of the wrist. The right radial artery was accessed via the Seldinger technique. A 6 Tristanian sheath was placed in the right radial artery. 2.5 mg of Verapamil, 800 mcg of nitroglycerin, 1mg Lidocaine and 5000 U Heparin were given through the arterial sheath. The JL3 catheter was also used to perform left heart catheterization, left ventriculogram and selective coronary angiogram. At the end the diagnostic angiogram the procedure was suspended to talk to the family about possible coronary bypass sugery, family chose to proceed with stenting. Therapeutic heparin was administered giving a therapeutic ACT and the guide catheter was placed in the left coronary cusp. Each time the guide catheter inserted there was dampening within the left main artery. 1 wire was placed in the LAD the other Choice PT placed in the first diagonal artery. A 3 mm x 15 mm noncompliant balloon was deployed at 20 nancy throughout the proximal and mid LAD in order to predilate the critical stenosis. A 2.5 x 12 mm noncompliant balloon was used to predilate the ostial diagonal artery. Following this the diagonal artery was pulled and a 3.5 x 38 mm Ely frontier stent was deployed at 20 nancy in the proximal to mid LAD. A wire was placed back into the first diagonal artery and a 2.5 x 12 mm compliant balloon was deployed in the ostial segment of the diagonal artery opening the struts at 15 nancy. A 2.5 x 15 mm Ely frontier stent was then placed into the LAD extending into the ostial and proximal diagonal artery and deployed at 20 nancy. The wire and balloon was removed from the first diagonal artery and a 3.5 x 12 mm compliant balloon was then placed adjacent to the first diagonal artery and deployed at 18 nancy. It was advanced and then deployed at 18 nancy distally as well as 20 nancy proximally. Following this a 5 mm x 12 mm Rakesh frontier stent was placed in the ostial left main artery and deployed at 20 nancy reducing this hemodynamically severe stenosis to 0%. All dampening discontinued after the stent was deployed in the left main artery. At the end the procedure the apparatus was removed the sheath was removed and hemostasis was achieved using TR banding patient was transferred to the postop boarding in stable condition ANGIOGRAPHIC RESULTS The left main artery Has an ostial greater than 50% stenosis The left anterior descending artery Has a proximal 90% stenosis which extends distal to the first diagonal artery. The vessel is heavily calcified. The first diagonal artery is large and has an ostial calcified 80% stenosis The circumflex artery Is a large codominant and has diffuse 10 to 20% luminal regularities The right coronary artery Is codominant and has mid vessel 30 to 40% stenosis The SMITH ventriculogram reveals Preserved at 55 to 60% The left ventricular end-diastolic pressure 20 mmHg IMPRESSION Severe coronary disease as described above Successful stenting of the ostial left main artery severe disease distally 0% with 1 drug-eluting stent Successful stenting of the proximal LAD severe disease reduced to 0% with 1 drug-eluting stent Successful stenting of a bifurcating large first diagonal artery severe disease distally 0% with 1 bifurcating stent of the left anterior descending artery Preserved ejection fraction Mildly elevated LVEDP PLAN 1. Effient and aspirin 2. LDL less than 55 to be achieved with high intensity statin 3. Avoidance of tobacco products 4. Risk factor modification 5. Cardiac rehabilitation 6. Further evaluation of chronic renal failure is indicated. 7. Consider cardiac MRI Electronically signed by : Michael Gipson MD 08/07/2025 13:41:05
[2025-08-02 08:24] LABS: Hematocrit 43.3 % (42.0-52.0); Hemoglobin 14.7 g/dL (14.1-18.0); Immature Granulocytes % 0.5 %; Mean Corpuscular HGB Conc 33.9 g/dL (31.8-35.4); Mean Corpuscular Hemoglobin 28.9 pg (27.0-31.2); Mean Corpuscular Volume 85.1 fl (80-94); Nucleated Red Blood Cells % 0 %; Platelet Count 192 K/mm3 (142-424); Red Blood Count 5.09 M/mm3 (4.60-6.20); Red Cell Distribution Width-SD 39.7 fL; White Blood Count 6.0 K/mm3 (4.8-10.8)
[2025-08-02 08:36] LABS: Anion Gap 11.8 mEq/L (5-15); Blood Urea Nitrogen 27 mg/dl (9-20); Calcium 9.8 mg/dl (8.4-10.2); Carbon Dioxide 24 mmol/L (22.0-30.0); Chloride 103 mmol/L (98-107); Creatinine Clearance Estimated 74 mL/min (50-200); Creatinine,Serum 1.40 mg/dl (0.66-1.25); Estimated Glomerular Filt Rate 52 ml/min (>60); GFR (African American) 63 ML/MIN (>60); Glucose 103 mg/dl (74-100); Potassium 4.8 mmoL/L (3.5-5.1); Sodium 134 mmol/L (136-145)
[2025-08-02] MEDS: HEPARIN 1,000 UNITS/500ML NS (CATH LAB) 3000 UNIT IV (11:45)
[2025-08-02] MEDS: VERAPAMIL 2.5MG/ML 2ML VIAL 2.5 MG IV (11:45)
[2025-08-02] MEDS: HEPARIN 1,000 UNITS/ML 10ML VIAL (CATH LAB) 5000 UNIT IV (11:46)
[2025-08-02] MEDS: NITROGLYCERIN 800MCG/8ML SYR (CATH LAB) 800 MCG IA (11:46)
[2025-08-02] MEDS: 0.9 % SODIUM CHLORIDE 500 ML 25 ML IV (11:46)
[2025-08-02] MEDS: LIDOCAINE 1% 10ML MDV 10 ML IJ (11:46)
[2025-08-02] MEDS: MIDAZOLAM HCL 1MG/ML 5ML VIAL 1 MG IV (11:47)
[2025-08-02] MEDS: FENTANYL 100MCG/2ML VIAL 50 MCG IV (11:47)
[2025-08-02] MEDS: PRASUGREL 10MG TAB 60 MG PO (12:32)
[2025-08-02 14:28] LABS: CATHL Activated Clotting Time 319 SEC (74-125)
--- NOTE | 2025-08-02 14:35 | SUR.PHASEII ---
pt reports dental pain. states he saw his dentist the other day and has been on Augmentin for 2 weeks. called dentist and they stated they wouldn't do anything for 90 days after having procedure today and wouldn't give him any pain meds either due to that. called pcp and got appointment for wednesday but pcp office also stated they wouldn't be able to give him anything either due to contraindications with blood thinners and pain meds per from pcp office. per dentist and pcp both recommended vending machine repairer prescribe something. notified dr heard of situation and he stated he would order pain meds. pt and notified.
[2025-08-02] MEDS: OXYCODONE 5MG W/APAP 325MG TABLET 1 EACH PO (14:51)
== END 2025-08-02 15:38 | disposition home or self-care (01) ==
PROVIDERS: Visit Provider Internal Medicine
PROC: 4A023N7 Measurement of Cardiac Sampling and Pressure, Left Heart, Percutaneous Approach (ICD-10-PCS; CPT 93452; principal; 2025-08-02 07:15)
DX: I25.119 Atherosclerotic heart disease of native coronary artery with unspecified angina pectoris (principal); R93.1 Abnormal findings on diagnostic imaging of heart and coronary circulation; I10 Essential (primary) hypertension; R94.31 Abnormal electrocardiogram [ECG] [EKG]; E78.2 Mixed hyperlipidemia; R53.83 Other fatigue; R00.2 Palpitations; J45.909 Unspecified asthma, uncomplicated; Z87.891 Personal history of nicotine dependence; Z79.82 Long term (current) use of aspirin; Z79.02 Long term (current) use of antithrombotics/antiplatelets; Z79.899 Other long term (current) drug therapy
CPT/HCPCS: 36415; 80048; 85025; 85347; 92928; 92929; 93458; 99152; 99153; C1725; C1760; C1769; C1874; C1887; C9600; C9601; J1200; J1644; J2003; J2704; J3010; J7040

== ENCOUNTER 2025-08-07 09:25 | Outpatient (CLI) | payer BC, SELFPAY ==
--- OUTSIDE RECORDS SUMMARY | 2025-08-07 09:28 | XMS_ITS | Clinical Summary ---
Author Organization Healthcare Address [address] [place] [address] Care Team Providers Care Marketing Intelligence Manager Name Role Phone Pcp, No Primary Care [...] place to sleep or slept in a senior care (including now)? No 06/01/2024 Utilities Answer Date [...] - Risk 60-74 years 1-dose series) 2024 [id number] Vaccine ( - 2024- season) 2025 07/06/2021, [...] complete this topic Insurance [place] [id number] ANTHEM Advance Directives * Full Code (Latest Code Status on File) Date Activated Date Inactivated Comments 05/31/2024 3:10 AM 06/01/2024 4:33 PM Question Answer Comments Patient has decision-making capacity? Yes Care Teams Marketing Intelligence Manager Relationship Specialty Start Date End Date Pcp, No [address] [place] [address] PCP - General Family Medicine 10/19/23
--- OUTSIDE RECORDS SUMMARY | 2025-08-07 09:28 | XMS_ITS | Clinical Summary ---
[facility] Address [address] [place] [address] Care Team Providers Care Economics Faculty Member Name Role Phone Unavailable Primary Care Provider [...] - 09/18/2017 6:14 AM EST Performed at: [address] [id number] [employer] Instructor: Efra Callahan MD, Phone: [phone] [place] APRN LAB BLOOD ORDERABLES Final Result Performing Organization Address [facility]/State/[facility] Co de Phone Number [facility] [address] [place] [address], from Last 3 Months or Most Recently Relevant to Health Maintenance [id number]
[2025-08-07 09:42] LABS: Hematocrit 41.9 % (42.0-52.0); Hemoglobin 13.9 g/dL (14.1-18.0); Immature Granulocytes % 0.4 %; Mean Corpuscular HGB Conc 33.2 g/dL (31.8-35.4); Mean Corpuscular Hemoglobin 28.1 pg (27.0-31.2); Mean Corpuscular Volume 84.6 fl (80-94); Nucleated Red Blood Cells % 0 %; Platelet Count 205 K/mm3 (142-424); Red Blood Count 4.95 M/mm3 (4.60-6.20); Red Cell Distribution Width-SD 38.4 fL; White Blood Count 6.7 K/mm3 (4.8-10.8)
[2025-08-07 10:05] LABS: Chloride 103 mmol/L (98-107); Potassium 4.7 mmoL/L (3.5-5.1); Sodium 139 mmol/L (136-145)
[2025-08-07 10:06] LABS: Albumin Level 4.3 g/dl (3.5-5.0)
[2025-08-07 10:08] LABS: Anion Gap 16.7 mEq/L (5-15); Bilirubin,Unconjugated 0.7 mg/dL (0.0-1.1); Blood Urea Nitrogen 30 mg/dl (9-20); Calcium 9.5 mg/dl (8.4-10.2); Carbon Dioxide 24 mmol/L (22.0-30.0); Creatinine,Serum 1.30 mg/dl (0.66-1.25); Estimated Glomerular Filt Rate 56 ml/min (>60); GFR (African American) 68 ML/MIN (>60); Glucose 91 mg/dl (74-100)
[2025-08-07 10:09] LABS: Alanine Aminotransferase 25 U/L (12-78); Alkaline Phosphatase 81 U/L (38-126); Aspartate Amino Transferase 30 U/L (17-59); Bilirubin,Direct 0.0 mg/dl (0.0-0.4); Bilirubin,Indirect 0.8 mg/dL (0.0-0.9); Bilirubin,Total 0.8 mg/dl (0.2-1.3); Cholesterol 161 mg/dl (140-200); HDL Cholesterol 33 mg/dl (40-60); Total Protein,Serum 7.0 g/dl (6.3-8.2); Triglycerides 97 mg/dl (30-150)
== END 2025-08-07 23:59 | disposition home or self-care (01) ==
LOC: LAB 09:26
PROVIDERS: Nurse Practitioner Family; PCP Family Medicine; Visit Provider Internal Medicine
DX: I25.119 Atherosclerotic heart disease of native coronary artery with unspecified angina pectoris (principal); R93.1 Abnormal findings on diagnostic imaging of heart and coronary circulation; I10 Essential (primary) hypertension; E78.2 Mixed hyperlipidemia
CPT/HCPCS: 36415; 80048; 80061; 80076; 85025